=== PATIENT | female | born 1955 | race Caucasian/White ===

== ENCOUNTER 2021-03-11 10:27 | Outpatient (CLI) | payer BC ==
[2021-03-11 23:42] LABS: SARS-CoV-2 PCR by NAA Not Detected (NotDetected)
== END 2021-03-11 10:28 | disposition home or self-care (01) ==
LOC: CSHLAB 10:27
PROVIDERS: ATTEND Internal Medicine
DX: Z01.812 Encounter for preprocedural laboratory examination (principal); Z20.822 Contact with and (suspected) exposure to COVID-19
CPT/HCPCS: U0003; U0005

== ENCOUNTER 2021-03-15 07:15 | Outpatient (CLI) | payer BC | END 2021-03-15 07:16 | disposition home or self-care (01) | LOC: CSHRAD 07:15 | PROVIDERS: ATTEND Internal Medicine | DX: R13.10 Dysphagia, unspecified (principal); K21.9 Gastro-esophageal reflux disease without esophagitis; K22.2 Esophageal obstruction | CPT/HCPCS: 74220 ==

== ENCOUNTER 2022-04-28 08:46 | Outpatient (CLI) | payer MEDICARE | END 2022-04-28 08:47 | disposition home or self-care (01) | LOC: CSHCT 08:46 | PROVIDERS: ATTEND Internal Medicine Hematology & Oncology | DX: C15.5 Malignant neoplasm of lower third of esophagus (principal); Z98.890 Other specified postprocedural states; R91.8 Other nonspecific abnormal finding of lung field | CPT/HCPCS: 71260; 74177 ==

== ENCOUNTER 2022-05-04 09:30 | Inpatient (IN) | payer MEDICARE ==
[2022-05-04] MEDS ORDERED: Morphine 4 MG/ML VIAL ONE (10:29)
[2022-05-04] MEDS ORDERED: Ondansetron PF 4 MG/2 ML Vial ONE (10:30)
[2022-05-04 10:44] LABS: #Basophils 0.1 10x3/uL (0.0-0.2); #Monocytes 0.6 10x3/uL (0.0-1.1); #Neutrophils 13.2 10x3/uL (1.5-8.4); %Basophils 0.3 % (0.0-2.0); %Eosinophils 0.2 % (0.0-6.0); %Lymphocytes 4.8 % (18.0-47.0); %Neutrophils 90.1 % (40.0-75.0); Hemoglobin 12.6 g/dL (12.0-15.5); Mean Corpuscular HGB CONC 33.8 g/dL (32.0-36.0); Mean Corpuscular Hemoglobin 31.5 pg (27.0-33.0); Mean Corpuscular Volume 93.3 fl (81.6-98.3); Mean Platelet Volume 9.3 fl (7.4-10.4); Platelet Count 321 10x3/uL (150-450); RBC Distribution Width 15.8 % (11.5-14.5); White Blood Cell (WBC) Count 14.7 10x3/uL (3.5-10.5)
[2022-05-04 10:55] LABS: ALT (SGPT) 13 U/L (8-55); AST (SGOT) 12 U/L (5-34); Albumin 3.6 g/dL (3.4-4.8); Alkaline Phosphatase 88 U/L (40-110); Anion Gap 18 mmol/L (10-20); BUN (Urea Nitrogen) 9 mg/dL (9.8-20.1); Bilirubin, Total 0.9 mg/dL (0.2-1.2); Calc. Creatinine Clearance 0 mL/min (70-130); Calcium 9.2 mg/dL (7.8-10.44); Carbon Dioxide 25 mmol/L (23-31); Chloride 95 mmol/L (98-107); Estimated GFR 100; Glucose 112 mg/dL (80-115); Potassium 3.3 mmol/L (3.5-5.1); Protein, Total 6.6 g/dL (5.8-8.1); Sodium 135 mmol/L (136-145)
[2022-05-04 11:08] LABS: Lipase Less than 4 U/L (8-78)
[2022-05-04 11:19] LABS: Bilirubin Neg (Negative); Blood, Urine 25 (Negative); Clarity Slightly Cloudy (Clear); Glucose, Urine (Dipstick) Normal (Negative); Ketone, Urine 150 mg/dL (Negative); Leukocyte 100 (Negative); Nitrite Positive (Negative); Protein, Urine (Dipstick) 15 mg/dl (Neg-Trace); Specific Gravity, Urine 1.015 (1.005-1.030); Urobilinogen Normal mg/dL (Less than 2)
[2022-05-04 11:45] LABS: Bacteria/HPF 4+ HPF (None Seen); RBC/HPF 0-3 HPF (0-3); Squamous Epithelial 0-3 HPF (0-3)
[2022-05-04] MEDS ORDERED: Fentanyl 100 MCG/2 ML VIAL ONE (12:39)
[2022-05-04] MEDS ORDERED: cefTRIAXone\\ROCEPHIN 2 GM VIAL ONE (12:50)
[2022-05-04] MEDS ORDERED: HYDROcodone/Acetaminophen 5/325 mg Tablet PO PRN (13:12)
[2022-05-04] MEDS ORDERED: Acetaminophen 325 MG TAB PO PRN (13:12)
[2022-05-04] MEDS ORDERED: Enoxaparin Sodium 40 MG/0.4 ML SYRINGE SC SCH (13:15)
[2022-05-04] MEDS ORDERED: cefTRIAXone\\ROCEPHIN 1 GM in Sodium Chloride 0.9% 100 ML IVPB SCH (13:15)
[2022-05-04] MEDS ORDERED: Azithromycin 500 MG in Sodium Chloride 0.9% 250 ML 250 ML IVPB SCH (13:15)
[2022-05-04] MEDS ORDERED: Azithromycin 500 MG VIAL ONE (14:13)
[2022-05-04] MEDS ORDERED: Iopamidol 300 61% 100 ML VIAL FS ONE (14:39)
[2022-05-04] MEDS ORDERED: Pantoprazole 40 MG VIAL ONE (15:28)
[2022-05-04] MEDS ORDERED: GoLYTELY 4,000 ml Bottle PO SCH (16:00)
[2022-05-04] MEDS ORDERED: Piperacillin/Tazobactam 3.375 GM in Sodium Chloride 0.9% 100 ML IVPB SCH (16:00)
[2022-05-04] MEDS ORDERED: Piperacillin/Tazobactam 3.375 GM VIAL ONE (16:19)
[2022-05-04] MEDS ORDERED: Enoxaparin Sodium 40 MG/0.4 ML SYRINGE ONE (16:19)
[2022-05-04] MEDS: Sodium Chloride 0.9% 1,000 ML IV SCH (16:28)
[2022-05-04 16:51] LABS: ALT (SGPT) 11 U/L (8-55); AST (SGOT) 10 U/L (5-34); Albumin 2.8 g/dL (3.4-4.8); Alkaline Phosphatase 72 U/L (40-110); Bilirubin, Direct 0.2 mg/dL (0.1-0.3); Bilirubin, Total 0.4 mg/dL (0.2-1.2); Protein, Total 5.6 g/dL (5.8-8.1)
[2022-05-04] MEDS: Piperacillin/Tazobactam 3.375 GM in Sodium Chloride 0.9% 100 ML IVPB SCH (20:42)
[2022-05-04] MEDS: Carvedilol 25 MG TAB PO SCH (20:42)
[2022-05-04] MEDS: clonazePAM 0.5 MG TAB PO SCH (20:43)
[2022-05-04] MEDS: Ondansetron ODT 8 MG TAB PO PRN (20:46)
[2022-05-04] MEDS: HYDROcodone/Acetaminophen 10/325 mg Tablet PO PRN (21:45)
[2022-05-05] MEDS: clonazePAM 0.5 MG TAB PO SCH ×5 (00:24→21:00)
[2022-05-05 05:53] LABS: Anion Gap 17 mmol/L (10-20); BUN (Urea Nitrogen) 10 mg/dL (9.8-20.1); Calc. Creatinine Clearance 93 mL/min (70-130); Calcium 8.4 mg/dL (7.8-10.44); Carbon Dioxide 20 mmol/L (23-31); Chloride 106 mmol/L (98-107); Estimated GFR 103; Glucose 77 mg/dL (80-115); Sodium 140 mmol/L (136-145)
[2022-05-05] MEDS: Piperacillin/Tazobactam 3.375 GM in Sodium Chloride 0.9% 100 ML IVPB SCH ×3 (06:04→21:00)
[2022-05-05] MEDS: HYDROcodone/Acetaminophen 10/325 mg Tablet PO PRN ×5 (06:05→22:52)
[2022-05-05] MEDS: Ondansetron ODT 8 MG TAB PO PRN (06:28)
[2022-05-05 06:41] LABS: #Eosinphils 0.1 10x3/uL (0.0-0.5); #Monocytes 0.4 10x3/uL (0.0-1.1); #Neutrophils 7.6 10x3/uL (1.5-8.4); %Basophils 0.3 % (0.0-2.0); %Eosinophils 0.8 % (0.0-6.0); %Lymphocytes 5.5 % (18.0-47.0); %Neutrophils 87.9 % (40.0-75.0); Hemoglobin 9.6 g/dL (12.0-15.5); Mean Corpuscular Hemoglobin 31.3 pg (27.0-33.0); Mean Corpuscular Volume 94.8 fl (81.6-98.3); Mean Platelet Volume 9.4 fl (7.4-10.4); Platelet Count 260 10x3/uL (150-450); RBC Distribution Width 16.1 % (11.5-14.5); Red Blood Cell (RBC) Count 3.07 10x6/uL (3.90-5.03); White Blood Cell (WBC) Count 8.7 10x3/uL (3.5-10.5)
[2022-05-05 07:01] VITALS: BMI 23.9
[2022-05-05] MEDS ORDERED: Potassium Chloride 20 MEQ TAB PO SCH (07:45)
[2022-05-05 09:08] LABS: Magnesium 1.8 mg/dL (1.6-2.6)
[2022-05-05] MEDS: Enoxaparin Sodium 40 MG/0.4 ML SYRINGE SC SCH (09:10)
[2022-05-05] MEDS: Losartan Potassium 50 MG TAB PO SCH (09:10)
[2022-05-05] MEDS: Carvedilol 25 MG TAB PO SCH ×2 (09:11→21:00)
[2022-05-05] MEDS: predniSONE 10 MG TAB PO SCH (09:11)
[2022-05-05] MEDS: Amlodipine 5 MG TAB PO SCH (09:11)
[2022-05-05] MEDS: Sodium Chloride 0.9% 1,000 ML IV SCH ×2 (11:29→19:46)
[2022-05-06] MEDS: HYDROcodone/Acetaminophen 10/325 mg Tablet PO PRN ×3 (02:02→08:59)
[2022-05-06] MEDS: Piperacillin/Tazobactam 3.375 GM in Sodium Chloride 0.9% 100 ML IVPB SCH (04:40)
[2022-05-06 06:51] LABS: #Eosinphils 0.2 10x3/uL (0.0-0.5); #Monocytes 0.6 10x3/uL (0.0-1.1); #Neutrophils 7.6 10x3/uL (1.5-8.4); %Basophils 0.3 % (0.0-2.0); %Eosinophils 1.7 % (0.0-6.0); %Lymphocytes 6.3 % (18.0-47.0); %Monocytes 6.2 % (0.0-10.0); %Neutrophils 84.7 % (40.0-75.0); Hemoglobin 10.3 g/dL (12.0-15.5); Mean Corpuscular HGB CONC 32.2 g/dL (32.0-36.0); Mean Corpuscular Hemoglobin 30.7 pg (27.0-33.0); Mean Corpuscular Volume 95.5 fl (81.6-98.3); Mean Platelet Volume 9.7 fl (7.4-10.4); Platelet Count 242 10x3/uL (150-450); RBC Distribution Width 16.1 % (11.5-14.5); Red Blood Cell (RBC) Count 3.35 10x6/uL (3.90-5.03); White Blood Cell (WBC) Count 8.9 10x3/uL (3.5-10.5)
[2022-05-06 06:53] LABS: Anion Gap 13 mmol/L (10-20); BUN (Urea Nitrogen) 11 mg/dL (9.8-20.1); Calc. Creatinine Clearance 94 mL/min (70-130); Calcium 8.8 mg/dL (7.8-10.44); Carbon Dioxide 24 mmol/L (23-31); Chloride 107 mmol/L (98-107); Estimated GFR 101; Glucose 95 mg/dL (80-115); Potassium 3.6 mmol/L (3.5-5.1); Sodium 140 mmol/L (136-145)
[2022-05-06 08:15] VITALS: BP 135/63; TEMP 98.3
[2022-05-06] MEDS: Amlodipine 5 MG TAB PO SCH (08:59)
[2022-05-06] MEDS: clonazePAM 0.5 MG TAB PO SCH (09:00)
[2022-05-06] MEDS ORDERED: Polyethylene Glycol 3350 17 GM Packet PO SCH (09:00)
[2022-05-06] MEDS: Losartan Potassium 50 MG TAB PO SCH (09:00)
[2022-05-06] MEDS: predniSONE 10 MG TAB PO SCH (09:01)
[2022-05-06] MEDS: Enoxaparin Sodium 40 MG/0.4 ML SYRINGE SC SCH (09:01)
[2022-05-06] MEDS: Carvedilol 25 MG TAB PO SCH (09:01)
== END 2022-05-06 11:30 | disposition home or self-care (01) | DRG 871 ==
LOC: CSHERS 09:30 → CSHERHOLD 15:20 → CSHTELE 19:12
PROVIDERS: ADMIT Family Medicine; ATTEND Internal Medicine
DX: A41.9 Sepsis, unspecified organism (principal); J18.9 Pneumonia, unspecified organism; N39.0 Urinary tract infection, site not specified; C15.9 Malignant neoplasm of esophagus, unspecified; M81.0 Age-related osteoporosis without current pathological fracture; I10 Essential (primary) hypertension; E87.6 Hypokalemia; E86.0 Dehydration; D64.9 Anemia, unspecified; K59.03 Drug induced constipation; T40.2X5A Adverse effect of other opioids, initial encounter; Z88.5 Allergy status to narcotic agent; Z88.8 Allergy status to other drugs, medicaments and biological substances; Z79.899 Other long term (current) drug therapy
CPT/HCPCS: 36415; 74177; 74181; 80048; 80053; 81003; 81015; 82247; 83605; 83690; 83735; 83880; 84484; 85025; 87040; 87077; 87086; 87149; 87186; 93005; 94760; 96361; 96365; 96366; 96367; 96375; 96376; C9113; J0456; J0696; J1650; J2270; J2405; J2543; J3010; J3490; J7050; J7512; Q0162; Q9967

== ENCOUNTER 2022-05-17 15:18 | Inpatient (IN) | payer MEDICARE ==
[~2022-05-17 15:18] MED LIST: Iopamidol 370 76% 100 ML VIAL ONE
[2022-05-17] MEDS ORDERED: Aspirin Chewable 81 MG TAB ONE (15:54)
[2022-05-17] MEDS ORDERED: Ketorolac Tromethamine 30 MG/ML VIAL ONE (16:04)
[2022-05-17] MEDS ORDERED: cefTRIAXone\\ROCEPHIN 1 GM VIAL ONE (16:05)
[2022-05-17 16:24] LABS: ALT (SGPT) 18 U/L (8-55); AST (SGOT) 24 U/L (5-34); Albumin 3.2 g/dL (3.4-4.8); Alkaline Phosphatase 86 U/L (40-110); Anion Gap 19 mmol/L (10-20); BUN (Urea Nitrogen) 9 mg/dL (9.8-20.1); Bilirubin, Total 0.7 mg/dL (0.2-1.2); Calc. Creatinine Clearance 0 mL/min (70-130); Calcium 8.7 mg/dL (7.8-10.44); Carbon Dioxide 22 mmol/L (23-31); Chloride 99 mmol/L (98-107); Estimated GFR 97; Globulin 2.8 g/dL (2.4-3.5); Glucose 203 mg/dL (80-115); Lipase 6 U/L (8-78); Magnesium 1.5 mg/dL (1.6-2.6); Potassium 4.3 mmol/L (3.5-5.1); Sodium 136 mmol/L (136-145)
[2022-05-17] MEDS ORDERED: Vancomycin 1 GM VIAL ONE (16:34)
[2022-05-17 16:38] LABS: MDiff Complete? YES
[2022-05-17 16:51] LABS: CKMB 2.6 ng/mL (0-6.6)
[2022-05-17] MEDS ORDERED: Piperacillin/Tazobactam 4.5 GM VIAL ONE (17:02)
[2022-05-17] MEDS ORDERED: Magnesium 2 GM/50 ML BAG (IN WATER) ONE (17:02)
[2022-05-17 17:16] LABS: Band 10 % (5-11)
[2022-05-17 17:25] LABS: Platelet Count 320 10x3/uL (150-450)
[2022-05-17 17:26] LABS: Hemoglobin 10.3 g/dL (12.0-15.5); Lymphocytes 8 % (21-51); Mean Corpuscular HGB CONC 32.2 g/dL (32.0-36.0); Mean Corpuscular Hemoglobin 30.5 pg (27.0-33.0); Mean Corpuscular Volume 94.7 fl (81.6-98.3); Mean Platelet Volume 9.9 fl (7.4-10.4); Monocytes 1 % (0-10); Neutrophil 80 % (42-75); RBC Distribution Width 16.5 % (11.5-14.5); Reactive Lymphocytes 1 % (0-10); Red Blood Cell (RBC) Count 3.38 10x6/uL (3.90-5.03)
[2022-05-17 17:27] LABS: Toxic Granulation SLIGHT; Vacuoles SLIGHT
[2022-05-17] MEDS ORDERED: NOREPINEPHRINE 8 MG/250 ML-D5W 250 ML ONE (17:28)
[2022-05-17 17:33] LABS: Bilirubin Neg (Negative); Blood, Urine 10 (Negative); Clarity Clear (Clear); Glucose, Urine (Dipstick) Normal (Negative); Ketone, Urine Negative (Negative); Leukocyte Negative (Negative); Nitrite Negative (Negative); Protein, Urine (Dipstick) 15 mg/dl (Neg-Trace); Urobilinogen Normal mg/dL (Less than 2)
[2022-05-17] MEDS ORDERED: Fentanyl 100 MCG/2 ML VIAL ONE (17:40)
[2022-05-17 17:49] LABS: Bacteria/HPF Rare-Few HPF (None Seen); Mucous/LPF 1+ LPF (<2+); RBC/HPF 0-3 HPF (0-3); Squamous Epithelial 0-3 HPF (0-3); WBC/HPF 0-3 HPF (0-3)
[2022-05-17] MEDS ORDERED: Ondansetron PF 4 MG/2 ML Vial ONE (17:55)
[2022-05-17] MEDS ORDERED: Vasopressin 20 UNIT, Admixture Fee 1 EACH in Sodium Chloride 0.9% 50 ML IV SCH (18:30)
[2022-05-17 18:49] LABS: SARS-CoV-2 NAA Rapid Test Not Detected (NotDetected)
[2022-05-17] MEDS ORDERED: Lorazepam 2 MG/ML VIAL ONE (18:52)
[2022-05-17] MEDS ORDERED: Electrolyte Replacement Protocol 1 EACH IVPB SCH (19:06)
[2022-05-17] MEDS ORDERED: Piperacillin/Tazobactam 3.375 GM in Sodium Chloride 0.9% 100 ML IVPB SCH (19:15)
[2022-05-17] MEDS ORDERED: Ondansetron ODT 8 MG TAB PO PRN (19:16)
[2022-05-17] MEDS ORDERED: Naloxone HCl 0.4 mg/ml Vial IV PRN (19:31)
[2022-05-17] MEDS ORDERED: Prochlorperazine Maleate 5 MG TAB PO PRN (19:32)
[2022-05-17] MEDS: Sodium Chloride 0.9% 1,000 ML IV SCH (21:09)
[2022-05-17] MEDS: clonazePAM 0.5 MG TAB PO SCH ×3 (21:17→23:41)
[2022-05-17 21:40] LABS: Hemoglobin 10.2 g/dL (12.0-15.5); Mean Corpuscular HGB CONC 30.3 g/dL (32.0-36.0); Mean Corpuscular Volume 99.1 fl (81.6-98.3); Mean Platelet Volume 9.9 fl (7.4-10.4); Platelet Count 256 10x3/uL (150-450); RBC Distribution Width 16.8 % (11.5-14.5); White Blood Cell (WBC) Count 15.3 10x3/uL (3.5-10.5)
[2022-05-17 21:43] LABS: MDiff Complete? YES
[2022-05-17 21:47] LABS: Lactic Acid 7.1 mmol/L (0.5-2.2)
[2022-05-17 21:48] LABS: ALT (SGPT) 113 U/L (8-55); AST (SGOT) 266 U/L (5-34); Albumin 2.5 g/dL (3.4-4.8); Alkaline Phosphatase 223 U/L (40-110); Anion Gap 18 mmol/L (10-20); BUN (Urea Nitrogen) 9 mg/dL (9.8-20.1); Bilirubin, Total 1.1 mg/dL (0.2-1.2); Calc. Creatinine Clearance 59 mL/min (70-130); Calcium 7.5 mg/dL (7.8-10.44); Carbon Dioxide 16 mmol/L (23-31); Chloride 108 mmol/L (98-107); Estimated GFR 98; Globulin 2.6 g/dL (2.4-3.5); Glucose 204 mg/dL (80-115); Potassium 4.5 mmol/L (3.5-5.1); Protein, Total 5.1 g/dL (5.8-8.1); Sodium 137 mmol/L (136-145)
[2022-05-17 22:50] LABS: Band 17 % (5-11); Lymphocytes 4 % (21-51); Monocytes 4 % (0-10); Neutrophil 75 % (42-75)
[2022-05-17 22:52] LABS: Platelet Morphology Comment Appears Adequate
[2022-05-17] MEDS: Piperacillin/Tazobactam 3.375 GM in Sodium Chloride 0.9% 100 ML IVPB SCH (23:25)
[2022-05-18] MEDS: methylPREDNISolone Sod Succ 40 MG VIAL IVP SCH ×4 (02:24→17:15)
[2022-05-18 04:37] LABS: #Monocytes 0.6 10x3/uL (0.0-1.1); #Neutrophils 5.4 10x3/uL (1.5-8.4); %Basophils 0.3 % (0.0-2.0); %Eosinophils 0.1 % (0.0-6.0); %Lymphocytes 9.5 % (18.0-47.0); %Monocytes 9.4 % (0.0-10.0); %Neutrophils 79.8 % (40.0-75.0); Hemoglobin 8.8 g/dL (12.0-15.5); Mean Corpuscular HGB CONC 31.7 g/dL (32.0-36.0); Mean Corpuscular Volume 95.1 fl (81.6-98.3); Mean Platelet Volume 10.1 fl (7.4-10.4); Platelet Count 200 10x3/uL (150-450); RBC Distribution Width 16.7 % (11.5-14.5); Red Blood Cell (RBC) Count 2.93 10x6/uL (3.90-5.03); White Blood Cell (WBC) Count 6.7 10x3/uL (3.5-10.5)
[2022-05-18 04:39] LABS: ALT (SGPT) 89 U/L (8-55); AST (SGOT) 148 U/L (5-34); Albumin 2.4 g/dL (3.4-4.8); Alkaline Phosphatase 176 U/L (40-110); Anion Gap 13 mmol/L (10-20); BUN (Urea Nitrogen) 9 mg/dL (9.8-20.1); Bilirubin, Total 0.4 mg/dL (0.2-1.2); Calc. Creatinine Clearance 63 mL/min (70-130); Calcium 7.5 mg/dL (7.8-10.44); Carbon Dioxide 18 mmol/L (23-31); Chloride 109 mmol/L (98-107); Estimated GFR 100; Globulin 2.3 g/dL (2.4-3.5); Glucose 170 mg/dL (80-115); Magnesium 2.1 mg/dL (1.6-2.6); Potassium 3.9 mmol/L (3.5-5.1); Protein, Total 4.7 g/dL (5.8-8.1); Sodium 136 mmol/L (136-145)
[2022-05-18 05:20] LABS: Band 15 % (5-11); Lymphocytes 9 % (21-51); Monocytes 8 % (0-10)
[2022-05-18 05:21] LABS: Neutrophil 67 % (42-75)
[2022-05-18 05:22] LABS: Hypochromia SLIGHT = 6-15 cells (100X) (0-5/hpf); Platelet Morphology Comment Appears Adequate
[2022-05-18] MEDS: Vancomycin HCl 750 MG in Sodium Chloride 0.9% 250 ML 250 ML IVPB SCH ×2 (06:00→17:16)
[2022-05-18] MEDS: Ondansetron PF 4 MG/2 ML Vial IVP PRN (06:07)
[2022-05-18] MEDS: Sodium Chloride 0.9% 1,000 ML IV SCH ×3 (07:28→17:16)
[2022-05-18] MEDS: Piperacillin/Tazobactam 3.375 GM in Sodium Chloride 0.9% 100 ML IVPB SCH ×2 (08:18→14:14)
[2022-05-18] MEDS: HYDROcodone/Acetaminophen 10/325 mg Tablet PO PRN ×4 (08:22→22:35)
[2022-05-18] MEDS: clonazePAM 0.5 MG TAB PO SCH ×2 (08:23→19:59)
[2022-05-18] MEDS ORDERED: predniSONE 10 MG TAB PO SCH (09:00)
[2022-05-18 11:14] LABS: Lactic Acid 3.2 mmol/L (0.5-2.2)
[2022-05-18] MEDS ORDERED: Dexmedetomidine In 0.9 % NaCl 100 ML IVPB SCH (11:45)
[2022-05-18 16:58] LABS: Troponin I 1.952 ng/mL (< 0.028)
[2022-05-19] MEDS ORDERED: Sodium Chloride 0.9% 100 ML ONE (00:37)
[2022-05-19] MEDS: methylPREDNISolone Sod Succ 40 MG VIAL IVP SCH ×4 (00:38→20:04)
[2022-05-19] MEDS: Piperacillin/Tazobactam 3.375 GM in Sodium Chloride 0.9% 100 ML IVPB SCH ×2 (00:38→08:14)
[2022-05-19] MEDS: Sodium Chloride 0.9% 1,000 ML IV SCH ×2 (02:57→12:57)
[2022-05-19] MEDS: HYDROcodone/Acetaminophen 10/325 mg Tablet PO PRN ×4 (03:40→17:29)
[2022-05-19 05:14] LABS: #Monocytes 0.3 10x3/uL (0.0-1.1); #Neutrophils 8.7 10x3/uL (1.5-8.4); %Basophils 0.1 % (0.0-2.0); %Lymphocytes 5.8 % (18.0-47.0); %Monocytes 3.1 % (0.0-10.0); %Neutrophils 90.2 % (40.0-75.0); Hemoglobin 8.6 g/dL (12.0-15.5); Mean Corpuscular HGB CONC 30.9 g/dL (32.0-36.0); Mean Corpuscular Hemoglobin 29.7 pg (27.0-33.0); Mean Corpuscular Volume 95.9 fl (81.6-98.3); Mean Platelet Volume 10.5 fl (7.4-10.4); Platelet Count 220 10x3/uL (150-450); RBC Distribution Width 17.2 % (11.5-14.5); White Blood Cell (WBC) Count 9.6 10x3/uL (3.5-10.5)
[2022-05-19 05:29] LABS: ALT (SGPT) 65 U/L (8-55); AST (SGOT) 71 U/L (5-34); Albumin 2.5 g/dL (3.4-4.8); Alkaline Phosphatase 155 U/L (40-110); Anion Gap 15 mmol/L (10-20); BUN (Urea Nitrogen) 9 mg/dL (9.8-20.1); Bilirubin, Total 0.3 mg/dL (0.2-1.2); Calc. Creatinine Clearance 68 mL/min (70-130); Calcium 7.9 mg/dL (7.8-10.44); Carbon Dioxide 16 mmol/L (23-31); Chloride 114 mmol/L (98-107); Estimated GFR 101; Globulin 2.5 g/dL (2.4-3.5); Glucose 147 mg/dL (80-115); Sodium 141 mmol/L (136-145)
[2022-05-19 05:44] LABS: Vancomycin, Trough 9.9 ug/mL
[2022-05-19] MEDS ORDERED: Vancomycin HCl 1 GM in Sodium Chloride 0.9% 250 ML 250 ML IVPB SCH (06:00)
[2022-05-19] MEDS: clonazePAM 0.5 MG TAB PO SCH ×2 (08:15→20:04)
[2022-05-19] MEDS: Aspirin 81 mg Enteric Coated Tablet PO SCH (08:15)
[2022-05-19] MEDS: Carvedilol 3.125 MG TAB PO SCH ×2 (08:15→16:07)
[2022-05-19] MEDS: cefTRIAXone\\ROCEPHIN 2 GM in Sodium Chloride 0.9% 100 ML IVPB SCH (12:50)
[2022-05-19] MEDS: Carvedilol 6.25 MG TAB PO SCH (16:45)
[2022-05-20] MEDS: HYDROcodone/Acetaminophen 10/325 mg Tablet PO PRN ×4 (04:10→19:50)
[2022-05-20 04:52] LABS: Hemoglobin 8.8 g/dL (12.0-15.5); Mean Corpuscular HGB CONC 31.3 g/dL (32.0-36.0); Mean Corpuscular Hemoglobin 30.3 pg (27.0-33.0); Mean Corpuscular Volume 96.9 fl (81.6-98.3); Mean Platelet Volume 11.2 fl (7.4-10.4); Platelet Count 270 10x3/uL (150-450); RBC Distribution Width 17.2 % (11.5-14.5); White Blood Cell (WBC) Count 12.4 10x3/uL (3.5-10.5)
[2022-05-20 05:07] LABS: ALT (SGPT) 54 U/L (8-55); AST (SGOT) 37 U/L (5-34); Albumin 2.7 g/dL (3.4-4.8); Alkaline Phosphatase 140 U/L (40-110); Anion Gap 15 mmol/L (10-20); BUN (Urea Nitrogen) 15 mg/dL (9.8-20.1); Bilirubin, Total 0.2 mg/dL (0.2-1.2); Calc. Creatinine Clearance 65 mL/min (70-130); Calcium 8.3 mg/dL (7.8-10.44); Carbon Dioxide 16 mmol/L (23-31); Chloride 116 mmol/L (98-107); Estimated GFR 97; Globulin 2.8 g/dL (2.4-3.5); Glucose 150 mg/dL (80-115); Potassium 4.1 mmol/L (3.5-5.1); Protein, Total 5.5 g/dL (5.8-8.1); Sodium 143 mmol/L (136-145)
[2022-05-20 06:12] LABS: MDiff Complete? YES; Platelet Morphology Comment Appears Adequate
[2022-05-20 06:14] LABS: Band 4 % (5-11); Lymphocytes 4 % (21-51); Monocytes 3 % (0-10); Neutrophil 89 % (42-75)
[2022-05-20 06:15] LABS: Anisocytosis SLIGHT = 6-15 cells (100X) (0-5/hpf); Hypochromia SLIGHT = 6-15 cells (100X) (0-5/hpf)
[2022-05-20] MEDS: Sodium Chloride 0.9% 1,000 ML IV SCH ×2 (07:57→18:15)
[2022-05-20] MEDS: Carvedilol 6.25 MG TAB PO SCH (07:57)
[2022-05-20] MEDS: methylPREDNISolone Sod Succ 40 MG VIAL IVP SCH ×2 (07:58→19:51)
[2022-05-20] MEDS: Aspirin 81 mg Enteric Coated Tablet PO SCH (07:58)
[2022-05-20] MEDS: clonazePAM 0.5 MG TAB PO SCH ×2 (07:58→19:51)
[2022-05-20] MEDS: cefTRIAXone\\ROCEPHIN 2 GM in Sodium Chloride 0.9% 100 ML IVPB SCH (12:53)
[2022-05-20] MEDS ORDERED: EPINEPHrine 1 MG/ML AMP ONE (13:48)
[2022-05-20] MEDS ORDERED: Bupivacaine 0.25% HCL 30 ML VIAL ONE (13:48)
[2022-05-20] MEDS ORDERED: Fentanyl 100 MCG/2 ML VIAL ONE (15:59)
[2022-05-20] MEDS ORDERED: PROPOFOL 20 ML ONE (15:59)
[2022-05-20] MEDS ORDERED: ePHEDrine Sulfate 50 MG/10 ML VIAL ONE (16:00)
[2022-05-20] MEDS ORDERED: Ketamine 50 MG/ML (10ML VIAL) ONE (16:01)
[2022-05-20] MEDS: Carvedilol 12.5 MG TAB PO SCH (19:08)
[2022-05-21] MEDS: HYDROcodone/Acetaminophen 10/325 mg Tablet PO PRN ×4 (01:56→21:29)
[2022-05-21] MEDS: Sodium Chloride 0.9% 1,000 ML IV SCH ×2 (03:46→12:16)
[2022-05-21 04:54] LABS: ALT (SGPT) 38 U/L (8-55); AST (SGOT) 20 U/L (5-34); Albumin 2.6 g/dL (3.4-4.8); Alkaline Phosphatase 121 U/L (40-110); Anion Gap 13 mmol/L (10-20); BUN (Urea Nitrogen) 20 mg/dL (9.8-20.1); Bilirubin, Total 0.2 mg/dL (0.2-1.2); Calc. Creatinine Clearance 71 mL/min (70-130); Calcium 8.1 mg/dL (7.8-10.44); Carbon Dioxide 17 mmol/L (23-31); Chloride 116 mmol/L (98-107); Estimated GFR 99; Globulin 2.6 g/dL (2.4-3.5); Glucose 133 mg/dL (80-115); Potassium 4.3 mmol/L (3.5-5.1); Protein, Total 5.2 g/dL (5.8-8.1); Sodium 142 mmol/L (136-145)
[2022-05-21 05:28] LABS: #Monocytes 0.3 10x3/uL (0.0-1.1); #Neutrophils 7.8 10x3/uL (1.5-8.4); %Basophils 0.2 % (0.0-2.0); %Lymphocytes 7.2 % (18.0-47.0); %Monocytes 3.6 % (0.0-10.0); %Neutrophils 84.6 % (40.0-75.0); Hemoglobin 8.5 g/dL (12.0-15.5); Mean Corpuscular HGB CONC 30.9 g/dL (32.0-36.0); Mean Corpuscular Volume 97.2 fl (81.6-98.3); Mean Platelet Volume 11.2 fl (7.4-10.4); Platelet Count 237 10x3/uL (150-450); RBC Distribution Width 17.3 % (11.5-14.5); Red Blood Cell (RBC) Count 2.83 10x6/uL (3.90-5.03); White Blood Cell (WBC) Count 9.3 10x3/uL (3.5-10.5)
[2022-05-21] MEDS: clonazePAM 0.5 MG TAB PO SCH ×2 (07:56→20:11)
[2022-05-21] MEDS: Aspirin 81 mg Enteric Coated Tablet PO SCH (07:57)
[2022-05-21] MEDS: Carvedilol 12.5 MG TAB PO SCH ×2 (07:57→16:54)
[2022-05-21] MEDS: methylPREDNISolone Sod Succ 40 MG VIAL IVP SCH ×2 (08:39→20:11)
[2022-05-21] MEDS: cefTRIAXone\\ROCEPHIN 2 GM in Sodium Chloride 0.9% 100 ML IVPB SCH (11:04)
[2022-05-21] MEDS: Acetaminophen 325 MG TAB PO PRN (20:47)
[2022-05-21] MEDS: Ondansetron PF 4 MG/2 ML Vial IVP PRN (21:34)
[2022-05-21] MEDS ORDERED: Furosemide 40 MG/4 ML VIAL SLOW IVP SCH (22:15)
[2022-05-22] MEDS: HYDROcodone/Acetaminophen 10/325 mg Tablet PO PRN ×4 (01:31→20:05)
[2022-05-22 04:28] LABS: Hemoglobin 9.1 g/dL (12.0-15.5); Mean Corpuscular HGB CONC 31.5 g/dL (32.0-36.0); Mean Corpuscular Hemoglobin 29.8 pg (27.0-33.0); Mean Corpuscular Volume 94.8 fl (81.6-98.3); Mean Platelet Volume 11.4 fl (7.4-10.4); Platelet Count 312 10x3/uL (150-450); RBC Distribution Width 17.4 % (11.5-14.5); Red Blood Cell (RBC) Count 3.05 10x6/uL (3.90-5.03); White Blood Cell (WBC) Count 12.7 10x3/uL (3.5-10.5)
[2022-05-22 04:37] LABS: ALT (SGPT) 33 U/L (8-55); AST (SGOT) 18 U/L (5-34); Albumin 2.8 g/dL (3.4-4.8); Alkaline Phosphatase 119 U/L (40-110); Anion Gap 16 mmol/L (10-20); BUN (Urea Nitrogen) 21 mg/dL (9.8-20.1); Bilirubin, Total 0.2 mg/dL (0.2-1.2); Calc. Creatinine Clearance 67 mL/min (70-130); Carbon Dioxide 17 mmol/L (23-31); Chloride 113 mmol/L (98-107); Estimated GFR 96; Globulin 2.8 g/dL (2.4-3.5); Glucose 156 mg/dL (80-115); Potassium 3.8 mmol/L (3.5-5.1); Protein, Total 5.6 g/dL (5.8-8.1); Sodium 142 mmol/L (136-145)
[2022-05-22 04:39] LABS: MDiff Complete? YES
[2022-05-22 06:32] LABS: Band 1 % (5-11); Lymphocytes 3 % (21-51); Monocytes 13 % (0-10); Neutrophil 83 % (42-75)
[2022-05-22 06:35] LABS: Anisocytosis SLIGHT = 6-15 cells (100X) (0-5/hpf); Hypochromia SLIGHT = 6-15 cells (100X) (0-5/hpf); Microcytosis SLIGHT = 6-15 cells (100X) (0-5/hpf); Platelet Morphology Comment Appears Adequate; Polychromasia SLIGHT = 2-3 cells (100X) (0-2/hpf); Schistocytes SLIGHT = 2-5 cells (100X) (0-1/hpf); Stomatocytes SLIGHT = 2-5 cells (100X) (0-1/hpf)
[2022-05-22] MEDS: clonazePAM 0.5 MG TAB PO SCH ×2 (08:01→20:05)
[2022-05-22] MEDS: Carvedilol 25 MG TAB PO SCH ×2 (08:02→16:59)
[2022-05-22] MEDS: Aspirin 81 mg Enteric Coated Tablet PO SCH (08:02)
[2022-05-22] MEDS: methylPREDNISolone Sod Succ 40 MG VIAL IVP SCH (09:54)
[2022-05-22] MEDS: cefTRIAXone\\ROCEPHIN 2 GM in Sodium Chloride 0.9% 100 ML IVPB SCH (11:15)
[2022-05-22] MEDS ORDERED: Lidocaine 1% PF 5 ML VIAL ONE (12:11)
[2022-05-22] MEDS ORDERED: Sodium Bicarbonate 2.5 MEQ/5 ML VIAL ONE (12:12)
[2022-05-22] MEDS ORDERED: Furosemide 40 MG/4 ML VIAL SLOW IVP SCH (13:00)
[2022-05-23 04:59] LABS: ALT (SGPT) 31 U/L (8-55); AST (SGOT) 23 U/L (5-34); Albumin 2.7 g/dL (3.4-4.8); Alkaline Phosphatase 100 U/L (40-110); Anion Gap 14 mmol/L (10-20); BUN (Urea Nitrogen) 20 mg/dL (9.8-20.1); Bilirubin, Total 0.3 mg/dL (0.2-1.2); Calc. Creatinine Clearance 76 mL/min (70-130); Calcium 8.1 mg/dL (7.8-10.44); Carbon Dioxide 22 mmol/L (23-31); Chloride 110 mmol/L (98-107); Estimated GFR 100; Globulin 2.5 g/dL (2.4-3.5); Glucose 110 mg/dL (80-115); Protein, Total 5.2 g/dL (5.8-8.1); Sodium 142 mmol/L (136-145)
[2022-05-23 05:06] LABS: Hemoglobin 8.8 g/dL (12.0-15.5); Mean Corpuscular HGB CONC 32.2 g/dL (32.0-36.0); Mean Corpuscular Volume 96.1 fl (81.6-98.3); Mean Platelet Volume 11.6 fl (7.4-10.4); Platelet Count 226 10x3/uL (150-450); RBC Distribution Width 17.8 % (11.5-14.5); Red Blood Cell (RBC) Count 2.84 10x6/uL (3.90-5.03); White Blood Cell (WBC) Count 11.5 10x3/uL (3.5-10.5)
[2022-05-23 05:09] LABS: MDiff Complete? YES
[2022-05-23 06:51] LABS: Band 3 % (5-11); Lymphocytes 4 % (21-51); Monocytes 3 % (0-10); Neutrophil 90 % (42-75); Nucleated RBC 1 % (0)
[2022-05-23 06:54] LABS: Anisocytosis SLIGHT = 6-15 cells (100X) (0-5/hpf); Macrocytosis SLIGHT = 6-15 cells (100X) (0-5/hpf); Platelet Morphology Comment Appears Adequate; Polychromasia SLIGHT = 2-3 cells (100X) (0-2/hpf)
[2022-05-23] MEDS: clonazePAM 0.5 MG TAB PO SCH ×2 (08:24→20:17)
[2022-05-23] MEDS: HYDROcodone/Acetaminophen 10/325 mg Tablet PO PRN ×3 (08:24→20:17)
[2022-05-23] MEDS: Aspirin 81 mg Enteric Coated Tablet PO SCH (08:24)
[2022-05-23] MEDS: Carvedilol 25 MG TAB PO SCH ×2 (08:24→17:03)
[2022-05-23] MEDS: methylPREDNISolone Sod Succ 40 MG VIAL IVP SCH (08:25)
[2022-05-23] MEDS: cefTRIAXone\\ROCEPHIN 2 GM in Sodium Chloride 0.9% 100 ML IVPB SCH (11:14)
[2022-05-24] MEDS ORDERED: Furosemide 20 MG/2 ML VIAL SLOW IVP SCH (00:30)
[2022-05-24] MEDS ORDERED: Albumin 25% 25 GM/100 ML BOT IVPB SCH (00:30)
[2022-05-24] MEDS: HYDROcodone/Acetaminophen 10/325 mg Tablet PO PRN ×5 (01:07→18:27)
[2022-05-24 05:01] LABS: ALT (SGPT) 36 U/L (8-55); AST (SGOT) 25 U/L (5-34); Albumin 3.4 g/dL (3.4-4.8); Alkaline Phosphatase 89 U/L (40-110); Anion Gap 13 mmol/L (10-20); BUN (Urea Nitrogen) 16 mg/dL (9.8-20.1); Bilirubin, Total 0.3 mg/dL (0.2-1.2); Calc. Creatinine Clearance 87 mL/min (70-130); Calcium 8.5 mg/dL (7.8-10.44); Carbon Dioxide 26 mmol/L (23-31); Chloride 105 mmol/L (98-107); Estimated GFR 103; Globulin 2.2 g/dL (2.4-3.5); Glucose 96 mg/dL (80-115); Potassium 3.3 mmol/L (3.5-5.1); Protein, Total 5.6 g/dL (5.8-8.1); Sodium 141 mmol/L (136-145)
[2022-05-24 05:09] LABS: Mean Corpuscular HGB CONC 31.3 g/dL (32.0-36.0); Mean Corpuscular Hemoglobin 30.1 pg (27.0-33.0); Mean Corpuscular Volume 96.2 fl (81.6-98.3); Mean Platelet Volume 11.3 fl (7.4-10.4); Platelet Count 236 10x3/uL (150-450); RBC Distribution Width 18.5 % (11.5-14.5); Red Blood Cell (RBC) Count 2.66 10x6/uL (3.90-5.03); White Blood Cell (WBC) Count 10.1 10x3/uL (3.5-10.5)
[2022-05-24 05:29] LABS: MDiff Complete? YES
[2022-05-24 05:33] LABS: Band 12 % (5-11); Lymphocytes 7 % (21-51); Monocytes 6 % (0-10); Myelocyte 1 % (0-0); Neutrophil 74 % (42-75)
[2022-05-24 05:35] LABS: Platelet Morphology Comment Appears Adequate; Polychromasia SLIGHT = 2-3 cells (100X) (0-2/hpf)
[2022-05-24 05:36] LABS: Anisocytosis SLIGHT = 6-15 cells (100X) (0-5/hpf)
[2022-05-24] MEDS ORDERED: Potassium Chloride 20 MEQ TAB PO SCH (08:00)
[2022-05-24] MEDS: methylPREDNISolone Sod Succ 40 MG VIAL IVP SCH (08:08)
[2022-05-24] MEDS: clonazePAM 0.5 MG TAB PO SCH ×2 (08:08→20:03)
[2022-05-24] MEDS: Carvedilol 25 MG TAB PO SCH ×2 (08:08→16:38)
[2022-05-24] MEDS: Aspirin 81 mg Enteric Coated Tablet PO SCH (08:09)
[2022-05-24] MEDS: cefTRIAXone\\ROCEPHIN 2 GM in Sodium Chloride 0.9% 100 ML IVPB SCH (11:19)
[2022-05-25] MEDS ORDERED: Potassium Chloride 20 MEQ TAB PO SCH (02:45)
[2022-05-25] MEDS ORDERED: Albumin 25% 25 GM/100 ML BOT IVPB SCH (02:45)
[2022-05-25] MEDS ORDERED: Furosemide 20 MG/2 ML VIAL SLOW IVP SCH (02:45)
[2022-05-25] MEDS: HYDROcodone/Acetaminophen 10/325 mg Tablet PO PRN ×6 (03:25→23:33)
[2022-05-25 03:32] LABS: #Monocytes 0.4 10x3/uL (0.0-1.1); #Neutrophils 7.5 10x3/uL (1.5-8.4); %Basophils 0.2 % (0.0-2.0); %Eosinophils 0.3 % (0.0-6.0); %Lymphocytes 8.6 % (18.0-47.0); %Monocytes 4.1 % (0.0-10.0); %Neutrophils 82.8 % (40.0-75.0); Hemoglobin 8.1 g/dL (12.0-15.5); Mean Corpuscular HGB CONC 31.3 g/dL (32.0-36.0); Mean Corpuscular Hemoglobin 30.5 pg (27.0-33.0); Mean Corpuscular Volume 97.4 fl (81.6-98.3); Mean Platelet Volume 11.1 fl (7.4-10.4); Platelet Count 225 10x3/uL (150-450); RBC Distribution Width 19.2 % (11.5-14.5); Red Blood Cell (RBC) Count 2.66 10x6/uL (3.90-5.03); White Blood Cell (WBC) Count 9.1 10x3/uL (3.5-10.5)
[2022-05-25 03:47] LABS: ALT (SGPT) 32 U/L (8-55); AST (SGOT) 25 U/L (5-34); Albumin 3.7 g/dL (3.4-4.8); Alkaline Phosphatase 80 U/L (40-110); Anion Gap 13 mmol/L (10-20); BUN (Urea Nitrogen) 15 mg/dL (9.8-20.1); Bilirubin, Total 0.3 mg/dL (0.2-1.2); Calc. Creatinine Clearance 86 mL/min (70-130); Calcium 8.8 mg/dL (7.8-10.44); Carbon Dioxide 28 mmol/L (23-31); Chloride 104 mmol/L (98-107); Estimated GFR 103; Globulin 2.3 g/dL (2.4-3.5); Glucose 98 mg/dL (80-115); Magnesium 2.1 mg/dL (1.6-2.6); Potassium 4.4 mmol/L (3.5-5.1); Sodium 141 mmol/L (136-145)
[2022-05-25] MEDS: methylPREDNISolone Sod Succ 40 MG VIAL IVP SCH (07:55)
[2022-05-25] MEDS: Carvedilol 25 MG TAB PO SCH ×2 (07:56→16:52)
[2022-05-25] MEDS: Aspirin 81 mg Enteric Coated Tablet PO SCH (07:56)
[2022-05-25] MEDS: clonazePAM 0.5 MG TAB PO SCH ×2 (07:56→21:10)
[2022-05-25] MEDS: cefTRIAXone\\ROCEPHIN 2 GM in Sodium Chloride 0.9% 100 ML IVPB SCH (11:59)
[2022-05-25] MEDS: Loperamide HCl 2 MG CAP PO PRN ×2 (13:24→17:00)
[2022-05-26] MEDS: HYDROcodone/Acetaminophen 10/325 mg Tablet PO PRN ×4 (03:29→20:10)
[2022-05-26 03:47] LABS: #Eosinphils 0.1 10x3/uL (0.0-0.5); #Monocytes 0.4 10x3/uL (0.0-1.1); #Neutrophils 7.4 10x3/uL (1.5-8.4); %Basophils 0.1 % (0.0-2.0); %Eosinophils 0.6 % (0.0-6.0); %Lymphocytes 11.1 % (18.0-47.0); %Monocytes 4.6 % (0.0-10.0); %Neutrophils 81.3 % (40.0-75.0); Hemoglobin 8.5 g/dL (12.0-15.5); Mean Corpuscular Hemoglobin 30.1 pg (27.0-33.0); Mean Corpuscular Volume 97.2 fl (81.6-98.3); Mean Platelet Volume 10.8 fl (7.4-10.4); Platelet Count 218 10x3/uL (150-450); RBC Distribution Width 19.2 % (11.5-14.5); Red Blood Cell (RBC) Count 2.82 10x6/uL (3.90-5.03)
[2022-05-26 04:05] LABS: ALT (SGPT) 27 U/L (8-55); AST (SGOT) 19 U/L (5-34); Albumin 3.2 g/dL (3.4-4.8); Alkaline Phosphatase 77 U/L (40-110); Anion Gap 13 mmol/L (10-20); BUN (Urea Nitrogen) 14 mg/dL (9.8-20.1); Bilirubin, Total 0.3 mg/dL (0.2-1.2); Calc. Creatinine Clearance 94 mL/min (70-130); Calcium 8.8 mg/dL (7.8-10.44); Carbon Dioxide 30 mmol/L (23-31); Chloride 101 mmol/L (98-107); Estimated GFR 105; Globulin 2.3 g/dL (2.4-3.5); Glucose 98 mg/dL (80-115); Potassium 4.2 mmol/L (3.5-5.1); Protein, Total 5.5 g/dL (5.8-8.1); Sodium 140 mmol/L (136-145)
[2022-05-26] MEDS: methylPREDNISolone Sod Succ 40 MG VIAL IVP SCH (08:06)
[2022-05-26] MEDS: Carvedilol 25 MG TAB PO SCH ×2 (08:07→16:45)
[2022-05-26] MEDS: clonazePAM 0.5 MG TAB PO SCH ×2 (08:07→20:10)
[2022-05-26] MEDS: Aspirin 81 mg Enteric Coated Tablet PO SCH (08:07)
[2022-05-26] MEDS: Losartan 25 MG TAB PO SCH ×2 (09:23→20:11)
[2022-05-26 10:02] LABS: Phosphorus 2.9 mg/dL (2.3-4.7)
[2022-05-26] MEDS: cefTRIAXone\\ROCEPHIN 2 GM in Sodium Chloride 0.9% 100 ML IVPB SCH (12:07)
[2022-05-26] MEDS: Loperamide HCl 2 MG CAP PO PRN ×2 (12:19→16:45)
[2022-05-26] MEDS: Multivit, Therapeutic 1 TAB PO SCH (20:10)
[2022-05-26] MEDS: Folic Acid 1 MG TAB PO SCH (20:11)
[2022-05-27] MEDS: HYDROcodone/Acetaminophen 10/325 mg Tablet PO PRN ×5 (03:30→21:46)
[2022-05-27] MEDS: Loperamide HCl 2 MG CAP PO PRN (03:34)
[2022-05-27 05:00] LABS: Anion Gap 15 mmol/L (10-20); BUN (Urea Nitrogen) 12 mg/dL (9.8-20.1); Calc. Creatinine Clearance 92 mL/min (70-130); Calcium 8.8 mg/dL (7.8-10.44); Carbon Dioxide 30 mmol/L (23-31); Chloride 100 mmol/L (98-107); Estimated GFR 104; Glucose 79 mg/dL (80-115); Potassium 4.5 mmol/L (3.5-5.1); Sodium 140 mmol/L (136-145)
[2022-05-27 05:01] LABS: #Monocytes 0.5 10x3/uL (0.0-1.1); #Neutrophils 9.4 10x3/uL (1.5-8.4); %Basophils 0.2 % (0.0-2.0); %Eosinophils 0.4 % (0.0-6.0); %Lymphocytes 7.4 % (18.0-47.0); %Monocytes 4.4 % (0.0-10.0); %Neutrophils 86.4 % (40.0-75.0); Hemoglobin 9.2 g/dL (12.0-15.5); Mean Corpuscular HGB CONC 32.4 g/dL (32.0-36.0); Mean Corpuscular Hemoglobin 31.2 pg (27.0-33.0); Mean Corpuscular Volume 96.3 fl (81.6-98.3); Mean Platelet Volume 11.2 fl (7.4-10.4); Platelet Count 202 10x3/uL (150-450); RBC Distribution Width 19.5 % (11.5-14.5); Red Blood Cell (RBC) Count 2.95 10x6/uL (3.90-5.03); White Blood Cell (WBC) Count 10.9 10x3/uL (3.5-10.5)
[2022-05-27] MEDS: clonazePAM 0.5 MG TAB PO SCH ×2 (08:18→21:46)
[2022-05-27] MEDS: Carvedilol 25 MG TAB PO SCH ×2 (08:18→17:01)
[2022-05-27] MEDS: Losartan 25 MG TAB PO SCH (08:18)
[2022-05-27] MEDS: methylPREDNISolone Sod Succ 40 MG VIAL IVP SCH (08:18)
[2022-05-27] MEDS: Aspirin 81 mg Enteric Coated Tablet PO SCH (08:18)
[2022-05-27] MEDS: cefTRIAXone\\ROCEPHIN 2 GM in Sodium Chloride 0.9% 100 ML IVPB SCH (12:46)
[2022-05-27] MEDS: Ondansetron PF 4 MG/2 ML Vial IVP PRN (17:31)
[2022-05-27] MEDS: Multivit, Therapeutic 1 TAB PO SCH (21:47)
[2022-05-27] MEDS: Folic Acid 1 MG TAB PO SCH (21:47)
[2022-05-28] MEDS: Acetaminophen 325 MG TAB PO PRN (00:56)
[2022-05-28] MEDS ORDERED: Vancomycin HCl 1 GM in Sodium Chloride 0.9% 250 ML 250 ML IVPB SCH (02:30)
[2022-05-28 02:52] LABS: #Monocytes 0.3 10x3/uL (0.0-1.1); #Neutrophils 10.6 10x3/uL (1.5-8.4); %Basophils 0.1 % (0.0-2.0); %Eosinophils 0.1 % (0.0-6.0); %Lymphocytes 2.3 % (18.0-47.0); %Monocytes 2.2 % (0.0-10.0); %Neutrophils 94.6 % (40.0-75.0); Mean Corpuscular HGB CONC 32.3 g/dL (32.0-36.0); Mean Corpuscular Hemoglobin 30.8 pg (27.0-33.0); Mean Corpuscular Volume 95.5 fl (81.6-98.3); Mean Platelet Volume 10.5 fl (7.4-10.4); Platelet Count 189 10x3/uL (150-450); RBC Distribution Width 19.7 % (11.5-14.5); Red Blood Cell (RBC) Count 2.92 10x6/uL (3.90-5.03); White Blood Cell (WBC) Count 11.2 10x3/uL (3.5-10.5)
[2022-05-28 03:07] LABS: Lactic Acid 1.6 mmol/L (0.5-2.2)
[2022-05-28 03:12] LABS: Anion Gap 15 mmol/L (10-20); BUN (Urea Nitrogen) 12 mg/dL (9.8-20.1); Calc. Creatinine Clearance 82 mL/min (70-130); Calcium 8.5 mg/dL (7.8-10.44); Carbon Dioxide 28 mmol/L (23-31); Chloride 98 mmol/L (98-107); Estimated GFR 103; Glucose 110 mg/dL (80-115); Sodium 137 mmol/L (136-145)
[2022-05-28] MEDS ORDERED: Lactated Ringer's 1,000 ML IV SCH ×2 (03:15→07:00)
[2022-05-28] MEDS: HYDROcodone/Acetaminophen 10/325 mg Tablet PO PRN ×4 (03:16→20:10)
[2022-05-28 03:27] LABS: Bilirubin Neg (Negative); Blood, Urine 10 (Negative); Clarity Cloudy (Clear); Glucose, Urine (Dipstick) Normal (Negative); Ketone, Urine Negative (Negative); Leukocyte 100 (Negative); Nitrite Negative (Negative); Protein, Urine (Dipstick) Negative (Neg-Trace); Urobilinogen Normal mg/dL (Less than 2)
[2022-05-28 03:37] LABS: Bacteria/HPF Rare-Few HPF (None Seen); RBC/HPF 0-3 HPF (0-3); Squamous Epithelial 0-3 HPF (0-3); WBC/HPF 21-50 HPF (0-3); Yeast-Budding 1+ HPF (None Seen); Yeast-Hyphae 1+ HPF (None Seen)
[2022-05-28] MEDS ORDERED: Ondansetron ODT 4 MG TAB PO PRN (04:02)
[2022-05-28] MEDS: Cefepime 2 GM in Sodium Chloride 0.9% 100 ML IVPB SCH ×2 (04:15→16:16)
[2022-05-28 05:14] LABS: Lactic Acid 2.8 mmol/L (0.5-2.2)
[2022-05-28] MEDS: clonazePAM 0.5 MG TAB PO SCH ×2 (08:03→20:11)
[2022-05-28] MEDS: Aspirin 81 mg Enteric Coated Tablet PO SCH (08:04)
[2022-05-28] MEDS: Carvedilol 25 MG TAB PO SCH ×2 (08:04→17:24)
[2022-05-28] MEDS: methylPREDNISolone Sod Succ 40 MG VIAL IVP SCH (08:05)
[2022-05-28] MEDS ORDERED: Polyethylene Glycol 3350 17 GM Packet PO PRN (09:34)
[2022-05-28] MEDS ORDERED: Naloxone HCl 0.4 mg/ml Vial IV PRN (09:38)
[2022-05-28] MEDS: Loperamide HCl 2 MG CAP PO PRN (12:31)
[2022-05-28 12:54] LABS: Lactic Acid 2.6 mmol/L (0.5-2.2)
[2022-05-28 13:40] LABS: SARS-CoV-2 NAA Rapid Test Not Detected (NotDetected)
[2022-05-28 16:59] LABS: Campy jejuni + coli by PCR Negative (Negative); STEC Shiga Toxin 1+2 Negative (Negative); Salmonella spp. by PCR Negative (Negative); Shigella spp + EIEC by PCR Negative (Negative)
[2022-05-28] MEDS: Folic Acid 1 MG TAB PO SCH (20:10)
[2022-05-28] MEDS: Multivit, Therapeutic 1 TAB PO SCH (20:11)
[2022-05-29] MEDS: HYDROcodone/Acetaminophen 10/325 mg Tablet PO PRN ×5 (00:37→18:28)
[2022-05-29 03:23] LABS: #Monocytes 0.4 10x3/uL (0.0-1.1); #Neutrophils 8.3 10x3/uL (1.5-8.4); %Basophils 0.1 % (0.0-2.0); %Eosinophils 0.2 % (0.0-6.0); %Lymphocytes 5.4 % (18.0-47.0); %Monocytes 4.6 % (0.0-10.0); %Neutrophils 89.1 % (40.0-75.0); Hemoglobin 8.7 g/dL (12.0-15.5); Mean Corpuscular HGB CONC 31.6 g/dL (32.0-36.0); Mean Corpuscular Hemoglobin 30.6 pg (27.0-33.0); Mean Corpuscular Volume 96.8 fl (81.6-98.3); Mean Platelet Volume 9.9 fl (7.4-10.4); Platelet Count 161 10x3/uL (150-450); RBC Distribution Width 19.2 % (11.5-14.5); Red Blood Cell (RBC) Count 2.84 10x6/uL (3.90-5.03); White Blood Cell (WBC) Count 9.3 10x3/uL (3.5-10.5)
[2022-05-29] MEDS: Cefepime 2 GM in Sodium Chloride 0.9% 100 ML IVPB SCH ×2 (03:38→16:25)
[2022-05-29 03:49] LABS: Vancomycin, Trough 10.6 ug/mL
[2022-05-29 03:51] LABS: Anion Gap 14 mmol/L (10-20); BUN (Urea Nitrogen) 13 mg/dL (9.8-20.1); Calc. Creatinine Clearance 82 mL/min (70-130); Calcium 8.7 mg/dL (7.8-10.44); Carbon Dioxide 27 mmol/L (23-31); Chloride 103 mmol/L (98-107); Estimated GFR 105; Glucose 105 mg/dL (80-115); Potassium 4.4 mmol/L (3.5-5.1); Sodium 140 mmol/L (136-145)
[2022-05-29] MEDS: Polyethylene Glycol 3350 17 GM Packet PO SCH (08:15)
[2022-05-29] MEDS: clonazePAM 0.5 MG TAB PO SCH ×2 (09:33→20:01)
[2022-05-29] MEDS: Aspirin 81 mg Enteric Coated Tablet PO SCH (09:33)
[2022-05-29] MEDS: Carvedilol 25 MG TAB PO SCH ×2 (09:33→17:22)
[2022-05-29] MEDS: methylPREDNISolone Sod Succ 40 MG VIAL IVP SCH (09:34)
[2022-05-29 14:37] LABS: Vancomycin, Trough 16.8 ug/mL
[2022-05-29] MEDS: Loperamide HCl 2 MG CAP PO PRN (18:28)
[2022-05-29] MEDS: Multivit, Therapeutic 1 TAB PO SCH (20:01)
[2022-05-29] MEDS: Folic Acid 1 MG TAB PO SCH (20:01)
[2022-05-30 03:25] LABS: #Monocytes 0.4 10x3/uL (0.0-1.1); #Neutrophils 7.3 10x3/uL (1.5-8.4); %Basophils 0.1 % (0.0-2.0); %Eosinophils 0.1 % (0.0-6.0); %Lymphocytes 5.9 % (18.0-47.0); %Monocytes 4.3 % (0.0-10.0); %Neutrophils 89.2 % (40.0-75.0); Hemoglobin 8.1 g/dL (12.0-15.5); Mean Corpuscular HGB CONC 31.3 g/dL (32.0-36.0); Mean Corpuscular Hemoglobin 30.6 pg (27.0-33.0); Mean Corpuscular Volume 97.7 fl (81.6-98.3); Mean Platelet Volume 10.9 fl (7.4-10.4); Platelet Count 155 10x3/uL (150-450); RBC Distribution Width 19.3 % (11.5-14.5); Red Blood Cell (RBC) Count 2.65 10x6/uL (3.90-5.03); White Blood Cell (WBC) Count 8.2 10x3/uL (3.5-10.5)
[2022-05-30 03:43] LABS: Anion Gap 12 mmol/L (10-20); BUN (Urea Nitrogen) 15 mg/dL (9.8-20.1); Calc. Creatinine Clearance 86 mL/min (70-130); Calcium 8.8 mg/dL (7.8-10.44); Carbon Dioxide 31 mmol/L (23-31); Chloride 103 mmol/L (98-107); Estimated GFR 105; Glucose 113 mg/dL (80-115); Potassium 4.8 mmol/L (3.5-5.1); Sodium 141 mmol/L (136-145)
[2022-05-30] MEDS: Cefepime 2 GM in Sodium Chloride 0.9% 100 ML IVPB SCH ×2 (04:52→15:50)
[2022-05-30] MEDS: Carvedilol 25 MG TAB PO SCH ×2 (07:53→16:38)
[2022-05-30] MEDS: Aspirin 81 mg Enteric Coated Tablet PO SCH (07:53)
[2022-05-30] MEDS: methylPREDNISolone Sod Succ 40 MG VIAL IVP SCH (07:54)
[2022-05-30] MEDS: Polyethylene Glycol 3350 17 GM Packet PO SCH (07:54)
[2022-05-30] MEDS: clonazePAM 0.5 MG TAB PO SCH ×2 (07:54→20:31)
[2022-05-30] MEDS: Loperamide HCl 2 MG CAP PO PRN ×2 (08:54→17:58)
[2022-05-30] MEDS ORDERED: Losartan Potassium 50 MG TAB PO SCH (09:45)
[2022-05-30] MEDS: Diphenoxylate HCl/Atropine Tablet PO SCH ×3 (12:37→20:31)
[2022-05-30] MEDS: HYDROcodone/Acetaminophen 10/325 mg Tablet PO PRN (13:41)
[2022-05-30] MEDS: Folic Acid 1 MG TAB PO SCH (20:31)
[2022-05-30] MEDS: Multivit, Therapeutic 1 TAB PO SCH (20:31)
[2022-05-31] MEDS: Diphenoxylate HCl/Atropine Tablet PO SCH ×2 (03:18→08:54)
[2022-05-31 04:19] LABS: Anion Gap 16 mmol/L (10-20); BUN (Urea Nitrogen) 12 mg/dL (9.8-20.1); Calc. Creatinine Clearance 83 mL/min (70-130); Calcium 8.9 mg/dL (7.8-10.44); Carbon Dioxide 28 mmol/L (23-31); Chloride 102 mmol/L (98-107); Estimated GFR 105; Glucose 92 mg/dL (80-115); Potassium 4.3 mmol/L (3.5-5.1); Sodium 142 mmol/L (136-145)
[2022-05-31 04:30] LABS: #Eosinphils 0.1 10x3/uL (0.0-0.5); #Monocytes 0.4 10x3/uL (0.0-1.1); #Neutrophils 5.1 10x3/uL (1.5-8.4); %Basophils 0.2 % (0.0-2.0); %Lymphocytes 11.2 % (18.0-47.0); %Monocytes 6.8 % (0.0-10.0); %Neutrophils 79.5 % (40.0-75.0); Mean Corpuscular HGB CONC 31.3 g/dL (32.0-36.0); Mean Platelet Volume 11.2 fl (7.4-10.4); Platelet Count 143 10x3/uL (150-450); RBC Distribution Width 19.2 % (11.5-14.5); White Blood Cell (WBC) Count 6.5 10x3/uL (3.5-10.5)
[2022-05-31 05:36] LABS: Platelet Morphology Comment Appears Decreased; RBC Morphology Normal
[2022-05-31 05:58] VITALS: BMI 18.5
[2022-05-31] MEDS: Polyethylene Glycol 3350 17 GM Packet PO SCH (07:17)
[2022-05-31] MEDS: Aspirin 81 mg Enteric Coated Tablet PO SCH (07:46)
[2022-05-31] MEDS: Carvedilol 25 MG TAB PO SCH (07:46)
[2022-05-31] MEDS: clonazePAM 0.5 MG TAB PO SCH (07:46)
[2022-05-31] MEDS: methylPREDNISolone Sod Succ 40 MG VIAL IVP SCH (07:47)
[2022-05-31 08:30] VITALS: BP 133/70; TEMP 98
[2022-05-31] MEDS ORDERED: cefTRIAXone\\ROCEPHIN 2 GM in Sodium Chloride 0.9% 100 ML IVPB SCH (09:00)
[2022-05-31] MEDS ORDERED: Losartan 25 MG TAB PO SCH (09:00)
[2022-05-31] MEDS ORDERED: Fluconazole 100 MG TAB PO SCH (09:00)
== END 2022-05-31 11:05 | disposition home or self-care (01) | DRG 280 ==
LOC: CSHERS 15:18 → CSHICU 18:31 → CSHIMCU 18:55
PROVIDERS: ADMIT Family Medicine; ATTEND Hospitalist
PROC: 3E033XZ Introduction of Vasopressor into Peripheral Vein, Percutaneous Approach (ICD-10-PCS; principal; 2022-05-17)
PROC: 0JPT0WZ Removal of Totally Implantable Vascular Access Device from Trunk Subcutaneous Tissue and Fascia, Open Approach (ICD-10-PCS; 2022-05-20)
PROC: 02HV33Z Insertion of Infusion Device into Superior Vena Cava, Percutaneous Approach (ICD-10-PCS; 2022-05-22)
PROC: B5181ZA Fluoroscopy of Superior Vena Cava using Low Osmolar Contrast, Guidance (ICD-10-PCS; 2022-05-22)
PROC: B548ZZA Ultrasonography of Superior Vena Cava, Guidance (ICD-10-PCS; 2022-05-22)
DX: T80.211A Bloodstream infection due to central venous catheter, initial encounter (principal); I21.A1 Myocardial infarction type 2; A40.8 Other streptococcal sepsis; R65.21 Severe sepsis with septic shock; J18.9 Pneumonia, unspecified organism; N39.0 Urinary tract infection, site not specified; I51.81 Takotsubo syndrome; I47.1 Supraventricular tachycardia; Z20.822 Contact with and (suspected) exposure to COVID-19; F41.9 Anxiety disorder, unspecified; G89.4 Chronic pain syndrome; Z96.643 Presence of artificial hip joint, bilateral; E83.42 Hypomagnesemia; M81.0 Age-related osteoporosis without current pathological fracture; Y83.8 Other surgical procedures as the cause of abnormal reaction of the patient, or of later complication, without mention of misadventure at the time of the procedure; I27.20 Pulmonary hypertension, unspecified; R33.9 Retention of urine, unspecified; I10 Essential (primary) hypertension; E87.6 Hypokalemia; R19.7 Diarrhea, unspecified; R53.81 Other malaise; E86.0 Dehydration; I48.91 Unspecified atrial fibrillation; Z88.8 Allergy status to other drugs, medicaments and biological substances; Z88.6 Allergy status to analgesic agent; Z79.899 Other long term (current) drug therapy; Z85.01 Personal history of malignant neoplasm of esophagus; Z79.52 Long term (current) use of systemic steroids; Z92.21 Personal history of antineoplastic chemotherapy; Z92.3 Personal history of irradiation
CPT/HCPCS: 36415; 36416; 36569; 70553; 71045; 71250; 71275; 74177; 80048; 80053; 80202; 81001; 81003; 81015; 82553; 83605; 83630; 83690; 83735; 84100; 84145; 84443; 84484; 85025; 87040; 87077; 87086; 87103; 87149; 87186; 87324; 87449; 87505; 87633; 87811; 93005; 93010; 93306; 94760; 96361; 96365; 96366; 96368; 96372; 96375; C1751; J0171; J0692; J0696; J1642; J1650; J1885; J1940; J2060; J2405; J2543; J2704; J2920; J3010; J3370; J3465; J3475; J3480; J3490; J7050; J7120; J7512; P9047; Q9967; S0020

== ENCOUNTER 2022-06-16 12:45 | Emergency (ER) | payer MEDICARE ==
[2022-06-16 13:56] LABS: Hemoglobin 9.2 g/dL (12.0-15.5); Mean Corpuscular HGB CONC 31.7 g/dL (32.0-36.0); Mean Corpuscular Hemoglobin 28.3 pg (27.0-33.0); Mean Corpuscular Volume 89.2 fl (81.6-98.3); Mean Platelet Volume 9.7 fl (7.4-10.4); Platelet Count 330 10x3/uL (150-450); RBC Distribution Width 18.3 % (11.5-14.5); Red Blood Cell (RBC) Count 3.25 10x6/uL (3.90-5.03); White Blood Cell (WBC) Count 8.7 10x3/uL (3.5-10.5)
[2022-06-16 14:04] LABS: MDiff Complete? YES
[2022-06-16 14:11] LABS: ALT (SGPT) 21 U/L (8-55); AST (SGOT) 28 U/L (5-34); Albumin 3.5 g/dL (3.4-4.8); Alkaline Phosphatase 74 U/L (40-110); Anion Gap 18 mmol/L (10-20); BUN (Urea Nitrogen) 13 mg/dL (9.8-20.1); Bilirubin, Total 0.7 mg/dL (0.2-1.2); Calc. Creatinine Clearance 0 mL/min (70-130); Calcium 9.3 mg/dL (7.8-10.44); Carbon Dioxide 24 mmol/L (23-31); Chloride 101 mmol/L (98-107); Estimated GFR 103; Glucose 124 mg/dL (80-115); Magnesium 1.8 mg/dL (1.6-2.6); Potassium 3.8 mmol/L (3.5-5.1); Protein, Total 6.5 g/dL (5.8-8.1); Sodium 139 mmol/L (136-145)
[2022-06-16 14:35] LABS: CKMB 1.5 ng/mL (0-6.6)
[2022-06-16 14:45] LABS: Band 2 % (5-11)
[2022-06-16 14:47] LABS: Lymphocytes 4 % (21-51); Monocytes 5 % (0-10); Neutrophil 89 % (42-75)
[2022-06-16 14:48] LABS: Platelet Morphology Comment Appears Adequate
== END 2022-06-16 16:02 | disposition home or self-care (01) ==
LOC: CSHERS 12:45
DX: E86.0 Dehydration (principal); D63.8 Anemia in other chronic diseases classified elsewhere; R19.7 Diarrhea, unspecified; R77.8 Other specified abnormalities of plasma proteins; I10 Essential (primary) hypertension
CPT/HCPCS: 80053; 82553; 83735; 84484; 85025; 93005

== ENCOUNTER 2022-06-18 18:55 | Inpatient (IN) | payer MEDICARE ==
[2022-06-18 20:20] LABS: Bilirubin Neg (Negative); Blood, Urine 150 (Negative); Clarity Slightly Cloudy (Clear); Glucose, Urine (Dipstick) Normal (Negative); Ketone, Urine 5 mg/dL (Negative); Leukocyte 500 (Negative); Nitrite Negative (Negative); Protein, Urine (Dipstick) 100 mg/dl (Neg-Trace); Urobilinogen Normal mg/dL (Less than 2)
[2022-06-18 20:32] LABS: #Monocytes 0.9 10x3/uL (0.0-1.1); #Neutrophils 11.5 10x3/uL (1.5-8.4); %Basophils 0.2 % (0.0-2.0); %Eosinophils 0.1 % (0.0-6.0); %Lymphocytes 4.6 % (18.0-47.0); %Monocytes 6.9 % (0.0-10.0); %Neutrophils 87.7 % (40.0-75.0); Hemoglobin 8.9 g/dL (12.0-15.5); Mean Corpuscular HGB CONC 31.9 g/dL (32.0-36.0); Mean Corpuscular Hemoglobin 28.5 pg (27.0-33.0); Mean Corpuscular Volume 89.4 fl (81.6-98.3); Mean Platelet Volume 9.7 fl (7.4-10.4); Platelet Count 342 10x3/uL (150-450); RBC Distribution Width 18.6 % (11.5-14.5); Red Blood Cell (RBC) Count 3.12 10x6/uL (3.90-5.03); White Blood Cell (WBC) Count 13.1 10x3/uL (3.5-10.5)
[2022-06-18 20:45] LABS: WBC/HPF 21-50 HPF (0-3)
[2022-06-18 20:46] LABS: Bacteria/HPF 1+ HPF (None Seen); Calcium Oxalate Crystals 1+ HPF (None Seen); Mucous/LPF 1+ LPF (<2+); Squamous Epithelial 0-3 HPF (0-3); Yeast-Budding 3+ HPF (None Seen)
[2022-06-18 20:51] LABS: ALT (SGPT) 22 U/L (8-55); AST (SGOT) 19 U/L (5-34); Albumin 3.2 g/dL (3.4-4.8); Alkaline Phosphatase 80 U/L (40-110); Anion Gap 16 mmol/L (10-20); BUN (Urea Nitrogen) 19 mg/dL (9.8-20.1); Bilirubin, Total 0.5 mg/dL (0.2-1.2); Calc. Creatinine Clearance 0 mL/min (70-130); Calcium 8.9 mg/dL (7.8-10.44); Carbon Dioxide 23 mmol/L (23-31); Chloride 98 mmol/L (98-107); Estimated GFR 100; Glucose 121 mg/dL (80-115); Lipase 17 U/L (8-78); Protein, Total 6.2 g/dL (5.8-8.1); Sodium 134 mmol/L (136-145)
[2022-06-18 20:56] LABS: SARS-CoV-2 NAA Rapid Test Not Detected (NotDetected)
[2022-06-18 21:12] LABS: CKMB 0.8 ng/mL (0-6.6)
[2022-06-18] MEDS ORDERED: Vancomycin 1 GM VIAL ONE ×2 (21:33→21:38)
[2022-06-18] MEDS ORDERED: Potassium Chloride 20 MEQ/100 ML PREMIX BAG ONE (21:33)
[2022-06-18] MEDS ORDERED: Cefepime 2 GM VIAL ONE (21:33)
[2022-06-18] MEDS ORDERED: HYDROcodone/Acetaminophen 5/325 mg Tablet ONE (22:33)
[2022-06-18 23:54] LABS: Lactic Acid 1.4 mmol/L (0.5-2.2)
[2022-06-19] MEDS ORDERED: Communication Order-Pharmacy FS ONE (00:34)
[2022-06-19] MEDS ORDERED: HYDROcodone/Acetaminophen 10/325 mg Tablet PO PRN (00:56)
[2022-06-19] MEDS ORDERED: CATHETER MC SCH (01:00)
[2022-06-19] MEDS ORDERED: Thiamine HCl 200 MG/2 ML VIAL SLOW IVP SCH (01:45)
[2022-06-19] MEDS ORDERED: Potassium Chloride 20 MEQ in Lactated Ringer's 1,000 ML IV SCH (02:00)
[2022-06-19] MEDS ORDERED: Multivitamins, Adult 10 ML, Folic Acid 1 MG, Thiamine HCl 100 MG in Dextrose 5 %-0.45 %... IV SCH (02:00)
[2022-06-19] MEDS: Hydrocortisone Sod Succ/PF 100 mg/2 ml Vial IVP SCH ×2 (02:37→13:56)
[2022-06-19 05:33] LABS: MDiff Complete? YES; Mean Corpuscular HGB CONC 32.1 g/dL (32.0-36.0); Mean Corpuscular Hemoglobin 28.6 pg (27.0-33.0); Mean Corpuscular Volume 88.9 fl (81.6-98.3); Mean Platelet Volume 9.9 fl (7.4-10.4); Platelet Count 291 10x3/uL (150-450); RBC Distribution Width 18.7 % (11.5-14.5); White Blood Cell (WBC) Count 12.4 10x3/uL (3.5-10.5)
[2022-06-19 05:46] LABS: Anion Gap 11 mmol/L (10-20); BUN (Urea Nitrogen) 15 mg/dL (9.8-20.1); Calc. Creatinine Clearance 62 mL/min (70-130); Calcium 8.6 mg/dL (7.8-10.44); Carbon Dioxide 24 mmol/L (23-31); Chloride 102 mmol/L (98-107); Estimated GFR 105; Glucose 153 mg/dL (80-115); Potassium 3.3 mmol/L (3.5-5.1); Sodium 134 mmol/L (136-145)
[2022-06-19 06:07] LABS: Band 6 % (5-11); Lymphocytes 3 % (21-51); Monocytes 5 % (0-10); Neutrophil 86 % (42-75)
[2022-06-19 06:08] LABS: Anisocytosis SLIGHT = 6-15 cells (100X) (0-5/hpf); Hypochromia SLIGHT = 6-15 cells (100X) (0-5/hpf); Platelet Morphology Comment Appears Adequate
[2022-06-19] MEDS ORDERED: Dextrose 50% Abboject 50 ML SYRINGE SLOW IVP PRN (06:21)
[2022-06-19] MEDS ORDERED: Dextrose 5% in Water 1,000 ML IV PRN (06:21)
[2022-06-19 07:15] LABS: Magnesium 1.6 mg/dL (1.6-2.6)
[2022-06-19] MEDS ORDERED: Potassium Chloride 20 MEQ in Premix Bag 1 BAG IVPB SCH (08:00)
[2022-06-19] MEDS ORDERED: Electrolyte Replacement Protocol 1 EACH FS PRN (08:06)
[2022-06-19] MEDS: Potassium Bicarbonate/Cit Ac 20 MEQ TAB PO SCH (08:42)
[2022-06-19] MEDS: Polyethylene Glycol 3350 17 GM Packet PO SCH ×2 (08:43→21:51)
[2022-06-19] MEDS: Losartan 25 MG TAB PO SCH (08:44)
[2022-06-19] MEDS: Aspirin 81 mg Enteric Coated Tablet PO SCH (08:44)
[2022-06-19] MEDS: Carvedilol 25 MG TAB PO SCH ×2 (08:44→21:43)
[2022-06-19] MEDS ORDERED: clonazePAM 0.5 MG TAB PO SCH (09:00)
[2022-06-19] MEDS ORDERED: Thiamine 100 MG TAB PO SCH (09:00)
[2022-06-19] MEDS ORDERED: Folic Acid 1 MG TAB PO SCH (09:00)
[2022-06-19] MEDS ORDERED: FLU VACC QS2022-23(65YR UP)/PF 240 MCG/0.7 ML SYRINGE IM ONE (09:00)
[2022-06-19] MEDS: Ferrous Sulfate 325 MG TAB PO SCH (09:01)
[2022-06-19] MEDS: Fluconazole 100 MG TAB PO SCH (09:17)
[2022-06-19] MEDS ORDERED: Magnesium 2 GM/50 ML(in water) 2 GM in Premix Bag 1 BAG IVPB SCH (09:30)
[2022-06-19 09:58] LABS: INR-International Normal Ratio 1.1; PTT 33.6 sec (22.0-33.0); Prothrombin Time 11.6 sec (9.5-12.1)
[2022-06-19 10:04] LABS: Cardiac Risk 2.8 (Less than 4.5); Cholesterol 108 mg/dl (< 200 Desired); HDL Cholesterol 39 mg/dL (>60 Neg Risk); LDL Cholesterol, Calculated 52 mg/dL; Phosphorus 2.3 mg/dL (2.3-4.7); Triglycerides 84 mg/dL (Less than 150)
[2022-06-19] MEDS: Cefepime 2 GM in Sodium Chloride 0.9% 100 ML IVPB SCH ×2 (10:30→21:43)
[2022-06-19] MEDS ORDERED: Naloxone HCl 0.4 mg/ml Vial IV PRN (11:40)
[2022-06-19] MEDS: Vancomycin HCl 500 MG in Sodium Chloride 0.9% 100 ML IVPB SCH (12:08)
[2022-06-19] MEDS ORDERED: Promethazine 25 MG TAB PO PRN (12:35)
[2022-06-19] MEDS: HYDROcodone/Acetaminophen 5/325 mg Tablet PO PRN ×3 (13:56→21:44)
[2022-06-19] MEDS ORDERED: LYTES IV SCH (14:00)
[2022-06-19] MEDS ORDERED: TRACE ELEMENT IV SCH (14:00)
[2022-06-19] MEDS ORDERED: D15W AA IV SCH (14:00)
[2022-06-19 14:17] LABS: Potassium 3.9 mmol/L (3.5-5.1)
[2022-06-19 15:20] VITALS: BMI 13.8
[2022-06-19] MEDS: HumaLOG 300 UNITS/3 ML VIAL SC PRN (16:49)
[2022-06-19] MEDS: clonazePAM 0.5 MG TAB PO SCH (17:06)
[2022-06-19] MEDS: Thiamine HCl 200 MG/2 ML VIAL SLOW IVP SCH (21:44)
[2022-06-20] MEDS: Vancomycin HCl 500 MG in Sodium Chloride 0.9% 100 ML IVPB SCH (00:18)
[2022-06-20] MEDS: Hydrocortisone Sod Succ/PF 100 mg/2 ml Vial IVP SCH ×2 (02:20→16:09)
[2022-06-20] MEDS: HYDROcodone/Acetaminophen 5/325 mg Tablet PO PRN ×5 (02:21→20:31)
[2022-06-20] MEDS ORDERED: Dextrose 10% in Water 1,000 ML ONE (05:11)
[2022-06-20] MEDS: clonazePAM 0.5 MG TAB PO SCH ×2 (05:16→17:40)
[2022-06-20] MEDS: Dextrose 10% in Water 1,000 ML IV SCH ×2 (05:27→17:51)
[2022-06-20 06:48] LABS: #Neutrophils 8.1 10x3/uL (1.5-8.4); %Basophils 0.1 % (0.0-2.0); %Eosinophils 0.2 % (0.0-6.0); %Lymphocytes 5.3 % (18.0-47.0); %Monocytes 10.1 % (0.0-10.0); %Neutrophils 83.8 % (40.0-75.0); Hemoglobin 7.8 g/dL (12.0-15.5); Mean Corpuscular Hemoglobin 28.2 pg (27.0-33.0); Mean Corpuscular Volume 88.1 fl (81.6-98.3); Mean Platelet Volume 9.4 fl (7.4-10.4); Platelet Count 259 10x3/uL (150-450); RBC Distribution Width 18.5 % (11.5-14.5); Red Blood Cell (RBC) Count 2.77 10x6/uL (3.90-5.03); White Blood Cell (WBC) Count 9.7 10x3/uL (3.5-10.5)
[2022-06-20 07:01] LABS: ALT (SGPT) 18 U/L (8-55); AST (SGOT) 17 U/L (5-34); Albumin 2.7 g/dL (3.4-4.8); Alkaline Phosphatase 75 U/L (40-110); Anion Gap 13 mmol/L (10-20); BUN (Urea Nitrogen) 15 mg/dL (9.8-20.1); Bilirubin, Total 0.3 mg/dL (0.2-1.2); Calc. Creatinine Clearance 65 mL/min (70-130); Calcium 8.7 mg/dL (7.8-10.44); Carbon Dioxide 24 mmol/L (23-31); Chloride 100 mmol/L (98-107); Estimated GFR 107; Globulin 3.1 g/dL (2.4-3.5); Glucose 115 mg/dL (80-115); Magnesium 1.8 mg/dL (1.6-2.6); Potassium 3.2 mmol/L (3.5-5.1); Protein, Total 5.8 g/dL (5.8-8.1); Sodium 134 mmol/L (136-145)
[2022-06-20] MEDS ORDERED: Potassium Chloride 20 MEQ in Premix Bag 1 BAG IVPB SCH (08:00)
[2022-06-20] MEDS ORDERED: Magnesium 2 GM/50 ML(in water) 2 GM in Premix Bag 1 BAG IVPB SCH ×2 (08:00→10:30)
[2022-06-20 10:23] LABS: Vancomycin, Trough 3.5 ug/mL
[2022-06-20] MEDS: Cefepime 2 GM in Sodium Chloride 0.9% 100 ML IVPB SCH ×2 (10:49→23:00)
[2022-06-20] MEDS: Ferrous Sulfate 325 MG TAB PO SCH (11:38)
[2022-06-20] MEDS: Carvedilol 25 MG TAB PO SCH ×2 (11:38→20:33)
[2022-06-20] MEDS: Fluconazole 100 MG TAB PO SCH (11:39)
[2022-06-20] MEDS: Losartan 25 MG TAB PO SCH (11:39)
[2022-06-20] MEDS: Vancomycin HCl 1 GM in Sodium Chloride 0.9% 250 ML 250 ML IVPB SCH (12:07)
[2022-06-20] MEDS ORDERED: Potassium Phosphate 15 MMOL in Sodium Chloride 0.9% 100 ML IVPB SCH (13:00)
[2022-06-20] MEDS ORDERED: Multivitamins, Adult 10 ML, TRACE ELEMENT CONCENTRATE 1 ML in D15W-AA 5% with Lytes 2,0... IV SCH (14:00)
[2022-06-20] MEDS: Aspirin 81 mg Enteric Coated Tablet PO SCH (14:22)
[2022-06-20] MEDS: Potassium Bicarbonate/Cit Ac 20 MEQ TAB PO SCH (14:23)
[2022-06-20] MEDS: Polyethylene Glycol 3350 17 GM Packet PO SCH ×2 (14:23→20:33)
[2022-06-20] MEDS: Thiamine HCl 200 MG/2 ML VIAL SLOW IVP SCH (20:31)
[2022-06-21] MEDS: D5 LR w/20 mEq KCL 1,000 ML IV SCH ×2 (00:18→11:30)
[2022-06-21] MEDS: Vancomycin HCl 1 GM in Sodium Chloride 0.9% 250 ML 250 ML IVPB SCH ×3 (00:18→23:51)
[2022-06-21] MEDS: Hydrocortisone Sod Succ/PF 100 mg/2 ml Vial IVP SCH ×2 (01:13→15:53)
[2022-06-21] MEDS: HYDROcodone/Acetaminophen 5/325 mg Tablet PO PRN ×3 (01:43→23:52)
[2022-06-21] MEDS: clonazePAM 0.5 MG TAB PO SCH ×2 (05:21→15:53)
[2022-06-21 05:22] LABS: #Monocytes 0.3 10x3/uL (0.0-1.1); #Neutrophils 9.4 10x3/uL (1.5-8.4); %Basophils 0.1 % (0.0-2.0); %Eosinophils 0.1 % (0.0-6.0); %Monocytes 2.6 % (0.0-10.0); %Neutrophils 94.5 % (40.0-75.0); Hemoglobin 8.2 g/dL (12.0-15.5); Mean Corpuscular HGB CONC 31.7 g/dL (32.0-36.0); Mean Corpuscular Hemoglobin 28.1 pg (27.0-33.0); Mean Corpuscular Volume 88.7 fl (81.6-98.3); Mean Platelet Volume 9.7 fl (7.4-10.4); Platelet Count 292 10x3/uL (150-450); Red Blood Cell (RBC) Count 2.92 10x6/uL (3.90-5.03)
[2022-06-21 05:42] LABS: ALT (SGPT) 18 U/L (8-55); AST (SGOT) 20 U/L (5-34); Albumin 2.7 g/dL (3.4-4.8); Alkaline Phosphatase 75 U/L (40-110); Anion Gap 15 mmol/L (10-20); BUN (Urea Nitrogen) 9 mg/dL (9.8-20.1); Bilirubin, Total 0.4 mg/dL (0.2-1.2); Calc. Creatinine Clearance 65 mL/min (70-130); Calcium 8.6 mg/dL (7.8-10.44); Carbon Dioxide 21 mmol/L (23-31); Chloride 100 mmol/L (98-107); Estimated GFR 107; Globulin 3.3 g/dL (2.4-3.5); Glucose 116 mg/dL (80-115); Phosphorus 3.2 mg/dL (2.3-4.7); Potassium 3.1 mmol/L (3.5-5.1); Sodium 133 mmol/L (136-145)
[2022-06-21] MEDS ORDERED: Potassium Chloride 20 MEQ TAB PO SCH ×2 (08:00→17:30)
[2022-06-21] MEDS ORDERED: Magnesium 2 GM/50 ML(in water) 2 GM in Premix Bag 1 BAG IVPB SCH (08:00)
[2022-06-21] MEDS: Ferrous Sulfate 325 MG TAB PO SCH (09:45)
[2022-06-21] MEDS: Carvedilol 25 MG TAB PO SCH ×2 (09:45→20:13)
[2022-06-21] MEDS: Aspirin 81 mg Enteric Coated Tablet PO SCH (09:45)
[2022-06-21] MEDS: Losartan 25 MG TAB PO SCH (09:46)
[2022-06-21] MEDS: Pantoprazole 40 MG VIAL IVP SCH (09:46)
[2022-06-21] MEDS: Cefepime 2 GM in Sodium Chloride 0.9% 100 ML IVPB SCH (09:46)
[2022-06-21] MEDS: Polyethylene Glycol 3350 17 GM Packet PO SCH ×2 (09:46→20:12)
[2022-06-21] MEDS: Potassium Bicarbonate/Cit Ac 20 MEQ TAB PO SCH (09:46)
[2022-06-21 14:16] LABS: Potassium 3.5 mmol/L (3.5-5.1)
[2022-06-21] MEDS: Thiamine HCl 200 MG/2 ML VIAL SLOW IVP SCH (20:13)
[2022-06-21] MEDS: HumaLOG 300 UNITS/3 ML VIAL SC PRN (20:33)
[2022-06-21 23:56] LABS: Vancomycin, Trough 15.2 ug/mL
[2022-06-22] MEDS: Hydrocortisone Sod Succ/PF 100 mg/2 ml Vial IVP SCH ×2 (03:45→14:18)
[2022-06-22 03:52] LABS: #Monocytes 0.6 10x3/uL (0.0-1.1); #Neutrophils 5.4 10x3/uL (1.5-8.4); %Basophils 0.2 % (0.0-2.0); %Lymphocytes 7.8 % (18.0-47.0); %Monocytes 8.5 % (0.0-10.0); %Neutrophils 82.7 % (40.0-75.0); Hemoglobin 7.4 g/dL (12.0-15.5); Mean Corpuscular HGB CONC 30.6 g/dL (32.0-36.0); Mean Corpuscular Hemoglobin 27.3 pg (27.0-33.0); Mean Corpuscular Volume 89.3 fl (81.6-98.3); Mean Platelet Volume 10.1 fl (7.4-10.4); Platelet Count 254 10x3/uL (150-450); RBC Distribution Width 18.8 % (11.5-14.5); Red Blood Cell (RBC) Count 2.71 10x6/uL (3.90-5.03); White Blood Cell (WBC) Count 6.6 10x3/uL (3.5-10.5)
[2022-06-22] MEDS: HYDROcodone/Acetaminophen 5/325 mg Tablet PO PRN ×5 (04:07→23:41)
[2022-06-22 04:08] LABS: ALT (SGPT) 20 U/L (8-55); AST (SGOT) 18 U/L (5-34); Albumin 2.4 g/dL (3.4-4.8); Alkaline Phosphatase 70 U/L (40-110); Anion Gap 11 mmol/L (10-20); BUN (Urea Nitrogen) 10 mg/dL (9.8-20.1); Bilirubin, Total 0.4 mg/dL (0.2-1.2); Calc. Creatinine Clearance 64 mL/min (70-130); Calcium 8.5 mg/dL (7.8-10.44); Carbon Dioxide 23 mmol/L (23-31); Chloride 103 mmol/L (98-107); Estimated GFR 106; Globulin 2.9 g/dL (2.4-3.5); Glucose 113 mg/dL (80-115); Magnesium 2.1 mg/dL (1.6-2.6); Phosphorus 2.8 mg/dL (2.3-4.7); Potassium 3.6 mmol/L (3.5-5.1); Protein, Total 5.3 g/dL (5.8-8.1); Sodium 133 mmol/L (136-145)
[2022-06-22] MEDS: clonazePAM 0.5 MG TAB PO SCH ×2 (05:19→17:14)
[2022-06-22] MEDS: D5 LR w/20 mEq KCL 1,000 ML IV SCH ×2 (06:43→14:18)
[2022-06-22] MEDS: Pantoprazole 40 MG VIAL IVP SCH (08:45)
[2022-06-22] MEDS: Losartan 25 MG TAB PO SCH (08:45)
[2022-06-22] MEDS: Ferrous Sulfate 325 MG TAB PO SCH (08:45)
[2022-06-22] MEDS: Carvedilol 25 MG TAB PO SCH ×2 (08:45→20:21)
[2022-06-22] MEDS: Aspirin 81 mg Enteric Coated Tablet PO SCH (08:45)
[2022-06-22] MEDS: Potassium Bicarbonate/Cit Ac 20 MEQ TAB PO SCH (08:45)
[2022-06-22] MEDS: Polyethylene Glycol 3350 17 GM Packet PO SCH (08:46)
[2022-06-22] MEDS: Vancomycin HCl 1 GM in Sodium Chloride 0.9% 250 ML 250 ML IVPB SCH (11:09)
[2022-06-22] MEDS: HumaLOG 300 UNITS/3 ML VIAL SC PRN (18:00)
[2022-06-22 18:23] LABS: Iron 12 ug/dL (50-170); Iron Binding Capacity, Total 131 mcg/dL (265-497)
[2022-06-22] MEDS ORDERED: Ampicillin 2 GM VIAL ONE (20:15)
[2022-06-22] MEDS: Ampicillin 2 GM in Sodium Chloride 0.9% 100 ML IVPB SCH ×2 (20:22→22:40)
[2022-06-22] MEDS: Thiamine HCl 200 MG/2 ML VIAL SLOW IVP SCH (20:22)
[2022-06-22 20:44] LABS: Hemoglobin 9.2 g/dL (12.0-15.5)
[2022-06-23] MEDS ORDERED: hydrALAZINE 20 MG/ML VIAL SLOW IVP SCH (00:30)
[2022-06-23] MEDS: Hydrocortisone Sod Succ/PF 100 mg/2 ml Vial IVP SCH ×2 (01:14→13:54)
[2022-06-23] MEDS: Ampicillin 2 GM in Sodium Chloride 0.9% 100 ML IVPB SCH ×6 (01:30→22:02)
[2022-06-23 04:16] LABS: #Monocytes 0.6 10x3/uL (0.0-1.1); #Neutrophils 8.5 10x3/uL (1.5-8.4); %Basophils 0.2 % (0.0-2.0); %Eosinophils 0.1 % (0.0-6.0); %Monocytes 6.2 % (0.0-10.0); %Neutrophils 87.7 % (40.0-75.0); Hemoglobin 8.9 g/dL (12.0-15.5); Mean Corpuscular HGB CONC 31.9 g/dL (32.0-36.0); Mean Corpuscular Hemoglobin 28.1 pg (27.0-33.0); Mean Platelet Volume 10.3 fl (7.4-10.4); Platelet Count 266 10x3/uL (150-450); RBC Distribution Width 17.6 % (11.5-14.5); Red Blood Cell (RBC) Count 3.17 10x6/uL (3.90-5.03); White Blood Cell (WBC) Count 9.7 10x3/uL (3.5-10.5)
[2022-06-23 04:32] LABS: ALT (SGPT) 25 U/L (8-55); AST (SGOT) 20 U/L (5-34); Albumin 2.3 g/dL (3.4-4.8); Alkaline Phosphatase 68 U/L (40-110); Anion Gap 15 mmol/L (10-20); BUN (Urea Nitrogen) 9 mg/dL (9.8-20.1); Bilirubin, Total 0.4 mg/dL (0.2-1.2); Calc. Creatinine Clearance 62 mL/min (70-130); Calcium 8.4 mg/dL (7.8-10.44); Carbon Dioxide 21 mmol/L (23-31); Chloride 105 mmol/L (98-107); Estimated GFR 106; Glucose 119 mg/dL (80-115); Magnesium 1.6 mg/dL (1.6-2.6); Phosphorus 2.6 mg/dL (2.3-4.7); Protein, Total 5.3 g/dL (5.8-8.1); Sodium 138 mmol/L (136-145)
[2022-06-23 04:41] LABS: Potassium 2.5 mmol/L (3.5-5.1)
[2022-06-23] MEDS ORDERED: Magnesium 2 GM/50 ML(in water) 2 GM in Premix Bag 1 BAG IVPB SCH ×2 (05:00→08:15)
[2022-06-23] MEDS: Potassium Chloride 20 MEQ TAB PO SCH ×4 (05:36→13:53)
[2022-06-23] MEDS: clonazePAM 0.5 MG TAB PO SCH ×2 (05:39→17:31)
[2022-06-23] MEDS: D5 LR w/20 mEq KCL 1,000 ML IV SCH ×2 (07:24→17:31)
[2022-06-23] MEDS: Aspirin 81 mg Enteric Coated Tablet PO SCH (08:24)
[2022-06-23] MEDS: Carvedilol 25 MG TAB PO SCH ×2 (08:24→21:02)
[2022-06-23] MEDS: Ferrous Sulfate 325 MG TAB PO SCH (08:24)
[2022-06-23] MEDS: Pantoprazole 40 MG VIAL IVP SCH (08:24)
[2022-06-23] MEDS: Losartan 25 MG TAB PO SCH (08:24)
[2022-06-23] MEDS: HYDROcodone/Acetaminophen 5/325 mg Tablet PO PRN ×2 (08:25→21:02)
[2022-06-23] MEDS: Potassium Bicarbonate/Cit Ac 20 MEQ TAB PO SCH (08:48)
[2022-06-23] MEDS: Polyethylene Glycol 3350 17 GM Packet PO SCH (08:48)
[2022-06-23] MEDS: Ondansetron ODT 4 MG TAB PO PRN (09:10)
[2022-06-23] MEDS ORDERED: Iopamidol 300 61% 100 ML VIAL FS ONE (11:16)
[2022-06-23 19:29] LABS: Hemoglobin 8.2 g/dL (12.0-15.5)
[2022-06-23] MEDS: Thiamine HCl 200 MG/2 ML VIAL SLOW IVP SCH (21:02)
[2022-06-24 00:56] LABS: Hemoglobin 8.3 g/dL (12.0-15.5)
[2022-06-24] MEDS: HYDROcodone/Acetaminophen 5/325 mg Tablet PO PRN ×4 (01:25→14:57)
[2022-06-24] MEDS: Hydrocortisone Sod Succ/PF 100 mg/2 ml Vial IVP SCH ×2 (01:25→14:57)
[2022-06-24] MEDS: Ampicillin 2 GM in Sodium Chloride 0.9% 100 ML IVPB SCH ×4 (02:00→14:57)
[2022-06-24 05:06] LABS: #Monocytes 0.5 10x3/uL (0.0-1.1); #Neutrophils 9.7 10x3/uL (1.5-8.4); %Basophils 0.1 % (0.0-2.0); %Eosinophils 0.1 % (0.0-6.0); %Lymphocytes 4.3 % (18.0-47.0); %Monocytes 4.4 % (0.0-10.0); %Neutrophils 90.1 % (40.0-75.0); Hemoglobin 8.5 g/dL (12.0-15.5); Mean Corpuscular HGB CONC 31.8 g/dL (32.0-36.0); Mean Corpuscular Hemoglobin 28.1 pg (27.0-33.0); Mean Corpuscular Volume 88.1 fl (81.6-98.3); Mean Platelet Volume 9.9 fl (7.4-10.4); Platelet Count 246 10x3/uL (150-450); RBC Distribution Width 17.9 % (11.5-14.5); Red Blood Cell (RBC) Count 3.03 10x6/uL (3.90-5.03); White Blood Cell (WBC) Count 10.8 10x3/uL (3.5-10.5)
[2022-06-24] MEDS: clonazePAM 0.5 MG TAB PO SCH (05:10)
[2022-06-24 05:19] LABS: ALT (SGPT) 23 U/L (8-55); AST (SGOT) 15 U/L (5-34); Albumin 2.5 g/dL (3.4-4.8); Alkaline Phosphatase 66 U/L (40-110); Anion Gap 12 mmol/L (10-20); BUN (Urea Nitrogen) 7 mg/dL (9.8-20.1); Bilirubin, Total 0.5 mg/dL (0.2-1.2); Calc. Creatinine Clearance 61 mL/min (70-130); Calcium 8.4 mg/dL (7.8-10.44); Carbon Dioxide 26 mmol/L (23-31); Chloride 102 mmol/L (98-107); Estimated GFR 105; Glucose 115 mg/dL (80-115); Magnesium 1.9 mg/dL (1.6-2.6); Phosphorus 1.8 mg/dL (2.3-4.7); Potassium 3.3 mmol/L (3.5-5.1); Protein, Total 5.5 g/dL (5.8-8.1); Sodium 137 mmol/L (136-145)
[2022-06-24] MEDS: D5 LR w/20 mEq KCL 1,000 ML IV SCH (05:54)
[2022-06-24] MEDS ORDERED: Magnesium 2 GM/50 ML(in water) 2 GM in Premix Bag 1 BAG IVPB SCH (08:00)
[2022-06-24] MEDS ORDERED: Potassium Chloride 20 MEQ TAB PO SCH (08:00)
[2022-06-24] MEDS: Carvedilol 25 MG TAB PO SCH (08:31)
[2022-06-24] MEDS: Losartan 25 MG TAB PO SCH (08:31)
[2022-06-24] MEDS: Pantoprazole 40 MG VIAL IVP SCH (08:31)
[2022-06-24] MEDS: Ferrous Sulfate 325 MG TAB PO SCH (08:31)
[2022-06-24] MEDS: Polyethylene Glycol 3350 17 GM Packet PO SCH (08:32)
[2022-06-24] MEDS: PHOS-NAK 1 PKT PACK PO SCH ×2 (08:32→12:28)
[2022-06-24] MEDS: Potassium Bicarbonate/Cit Ac 20 MEQ TAB PO SCH (08:32)
[2022-06-24] MEDS: Aspirin 81 mg Enteric Coated Tablet PO SCH (08:32)
[2022-06-24] MEDS ORDERED: Magnevist 469MG/ML 20 ML VIAL ONE (11:25)
[2022-06-24] MEDS: Ondansetron ODT 4 MG TAB PO PRN (12:28)
[2022-06-24] MEDS ORDERED: Ondansetron PF 4 MG/2 ML Vial IVP PRN (12:56)
[2022-06-24 17:01] VITALS: TEMP 97.9
[2022-06-24 17:48] VITALS: BP 145/93
[2022-06-25] MEDS ORDERED: Hydrocortisone Sod Succ/PF 100 mg/2 ml Vial IVP SCH (14:00)
== END 2022-06-24 18:11 | disposition short-term general hospital (02) | DRG 871 ==
LOC: CSHERS 18:55 → CSHTELE 23:28
PROVIDERS: ADMIT Family Medicine; ATTEND Internal Medicine
PROC: 3E03329 Introduction of Other Anti-infective into Peripheral Vein, Percutaneous Approach (ICD-10-PCS; 2022-06-18)
PROC: 02PYX3Z Removal of Infusion Device from Great Vessel, External Approach (ICD-10-PCS; 2022-06-21)
PROC: 30233N1 Transfusion of Nonautologous Red Blood Cells into Peripheral Vein, Percutaneous Approach (ICD-10-PCS; principal; 2022-06-22)
DX: A41.81 Sepsis due to Enterococcus (principal); E43 Unspecified severe protein-calorie malnutrition; G93.41 Metabolic encephalopathy; G06.2 Extradural and subdural abscess, unspecified; I51.81 Takotsubo syndrome; N39.0 Urinary tract infection, site not specified; G72.81 Critical illness myopathy; G95.20 Unspecified cord compression; K92.1 Melena; Z68.1 Body mass index [BMI] 19.9 or less, adult; I10 Essential (primary) hypertension; M81.0 Age-related osteoporosis without current pathological fracture; Z96.653 Presence of artificial knee joint, bilateral; I48.91 Unspecified atrial fibrillation; E87.6 Hypokalemia; Z20.822 Contact with and (suspected) exposure to COVID-19; G89.29 Other chronic pain; D63.8 Anemia in other chronic diseases classified elsewhere; K59.03 Drug induced constipation; L89.152 Pressure ulcer of sacral region, stage 2; T40.2X5A Adverse effect of other opioids, initial encounter; Z98.890 Other specified postprocedural states; Z88.1 Allergy status to other antibiotic agents; Z79.899 Other long term (current) drug therapy; Z79.82 Long term (current) use of aspirin; Z88.5 Allergy status to narcotic agent
CPT/HCPCS: 36415; 36416; 36430; 70460; 71045; 72157; 74018; 74177; 80048; 80053; 80061; 80202; 81003; 81015; 82274; 82553; 82728; 83540; 83550; 83605; 83690; 83735; 83880; 84100; 84134; 84484; 85025; 85610; 85730; 86850; 86900; 86901; 87040; 87071; 87077; 87086; 87149; 87186; 87324; 87449; 93005; 93010; 96365; 96375; 97139; A9579; C9113; J0290; J0360; J0692; J1650; J1720; J1815; J2405; J3370; J3411; J3475; J3480; J3490; J7042; J7050; J7120; P9016; Q0162; Q9967

== ENCOUNTER 2022-10-27 08:24 | Outpatient (CLI) | payer MEDICARE | END 2022-10-27 08:25 | disposition home or self-care (01) | LOC: CSHWCC 08:24 | PROVIDERS: ATTEND Nurse Practitioner Family | DX: L89.154 Pressure ulcer of sacral region, stage 4 (principal) | CPT/HCPCS: 11042; 97607 ==

== ENCOUNTER 2022-11-10 08:00 | Outpatient (CLI) | payer MEDICARE | END 2022-11-10 08:01 | disposition home or self-care (01) | LOC: CSHWCC 08:00 | PROVIDERS: ATTEND Nurse Practitioner Family | DX: L89.154 Pressure ulcer of sacral region, stage 4 (principal) | CPT/HCPCS: 11043; 97607 ==

== ENCOUNTER 2022-11-24 08:32 | Outpatient (CLI) | payer MEDICARE | END 2022-11-24 08:33 | disposition home or self-care (01) | LOC: CSHWCC 08:32 | PROVIDERS: ATTEND Nurse Practitioner Family | DX: L89.154 Pressure ulcer of sacral region, stage 4 (principal) | CPT/HCPCS: 97597 ==

== ENCOUNTER 2022-12-03 08:37 | Outpatient (CLI) | payer MEDICARE | END 2022-12-03 08:38 | disposition home or self-care (01) | LOC: CSHWCC 08:37 | PROVIDERS: ATTEND Nurse Practitioner Family | DX: L89.154 Pressure ulcer of sacral region, stage 4 (principal) | CPT/HCPCS: 97597; 97598 ==

== ENCOUNTER 2022-12-17 08:36 | Outpatient (CLI) | payer MEDICARE | END 2022-12-17 08:37 | disposition home or self-care (01) | LOC: CSHWCC 08:36 | PROVIDERS: ATTEND Nurse Practitioner Family | DX: L89.154 Pressure ulcer of sacral region, stage 4 (principal) | CPT/HCPCS: 97597; 97598 ==

== ENCOUNTER 2022-12-24 12:16 | Emergency (ER) | payer MEDICARE ==
[2022-12-24 13:57] LABS: Hematocrit 31.4 % (34.9-44.5); Hemoglobin 9.5 g/dL (12.0-15.5); Mean Corpuscular HGB CONC 30.3 g/dL (32.0-36.0); Mean Corpuscular Volume 82.6 fl (81.6-98.3); Mean Platelet Volume 9.6 fl (7.4-10.4); Platelet Count 289 10x3/uL (150-450); RBC Distribution Width 24.8 % (11.5-14.5); White Blood Cell (WBC) Count 7.5 10x3/uL (3.5-10.5)
[2022-12-24 13:58] LABS: MDiff Complete? YES
[2022-12-24] MEDS ORDERED: Acetaminophen 500 MG TAB ONE (13:59)
[2022-12-24] MEDS ORDERED: cefTRIAXone (ROCEPHIN) 1 GM VIAL ONE (14:00)
[2022-12-24] MEDS ORDERED: LevoFLOXacin 750 mg/D5W 150 ml Premix Bag ONE (14:00)
[2022-12-24 14:04] LABS: ALT (SGPT) 12 U/L (8-55); AST (SGOT) 16 U/L (5-34); Albumin 3.1 g/dL (3.4-4.8); Alkaline Phosphatase 119 U/L (40-110); Anion Gap 16 mmol/L (10-20); BUN (Urea Nitrogen) 29 mg/dL (9.8-20.1); Bilirubin, Total 0.3 mg/dL (0.2-1.2); Calc. Creatinine Clearance 0 mL/min (70-130); Calcium 8.3 mg/dL (7.8-10.44); Carbon Dioxide 23 mmol/L (23-31); Chloride 100 mmol/L (98-107); Estimated GFR 88; Glucose 130 mg/dL (80-115); Potassium 3.9 mmol/L (3.5-5.1); Protein, Total 6.1 g/dL (5.8-8.1); Sodium 135 mmol/L (136-145)
[2022-12-24 15:02] LABS: Band 10 % (5-11); Lymphocytes 7 % (21-51); Monocytes 6 % (0-10); Neutrophil 76 % (42-75)
[2022-12-24 15:05] LABS: Anisocytosis MODERATE=16-30 cells (100X) (0-5/hpf); Hypochromia SLIGHT = 6-15 cells (100X) (0-5/hpf)
[2022-12-24 15:06] LABS: Platelet Adequacy Comment Appears Adequate
[2022-12-24 16:59] LABS: Bilirubin Neg (Negative); Blood, Urine 150 (Negative); Clarity Cloudy (Clear); Glucose, Urine (Dipstick) Normal (Negative); Ketone, Urine Negative (Negative); Leukocyte 500 (Negative); Nitrite Negative (Negative); Protein, Urine (Dipstick) 100 mg/dl (Neg-Trace); Urobilinogen Normal mg/dL (Less than 2)
[2022-12-24 17:17] LABS: CAUTI Indications for Culture Fever or rigors; RBC/HPF 21-50 HPF (0-3); WBC/HPF Greater Than 50 HPF (0-3)
[2022-12-24 17:18] LABS: Squamous Epithelial None Seen HPF (0-3)
[2022-12-24 17:19] LABS: Bacteria/HPF 2+ HPF (None Seen)
[2022-12-24 17:21] LABS: Urine Culture Reflex Yes Yes
== END 2022-12-24 17:00 | disposition home or self-care (01) ==
LOC: CSHERS 12:16
DX: N10 Acute pyelonephritis (principal); A41.9 Sepsis, unspecified organism; I10 Essential (primary) hypertension
CPT/HCPCS: 36415; 71045; 80053; 81001; 83605; 85025; 87040; 87077; 87086; 87149; 87186; 96365; 96366; 96367; J0696; J1956

== ENCOUNTER 2022-12-25 18:59 | Inpatient (IN) | payer MEDICARE ==
[2022-12-25 20:35] LABS: Hematocrit 28.7 % (34.9-44.5); Hemoglobin 8.9 g/dL (12.0-15.5); Mean Corpuscular Hemoglobin 25.3 pg (27.0-33.0); Mean Corpuscular Volume 81.5 fl (81.6-98.3); Mean Platelet Volume 9.4 fl (7.4-10.4); Platelet Count 265 10x3/uL (150-450); Red Blood Cell (RBC) Count 3.52 10x6/uL (3.90-5.03); White Blood Cell (WBC) Count 8.1 10x3/uL (3.5-10.5)
[2022-12-25 20:47] LABS: ALT (SGPT) 9 U/L (8-55); AST (SGOT) 14 U/L (5-34); Albumin 2.9 g/dL (3.4-4.8); Alkaline Phosphatase 110 U/L (40-110); Anion Gap 16 mmol/L (10-20); BUN (Urea Nitrogen) 24 mg/dL (9.8-20.1); Bilirubin, Total 0.3 mg/dL (0.2-1.2); Calc. Creatinine Clearance 0 mL/min (70-130); Calcium 8.9 mg/dL (7.8-10.44); Carbon Dioxide 23 mmol/L (23-31); Chloride 102 mmol/L (98-107); Estimated GFR 96; Globulin 3.4 g/dL (2.4-3.5); Glucose 109 mg/dL (80-115); Potassium 3.5 mmol/L (3.5-5.1); Protein, Total 6.3 g/dL (5.8-8.1); Sodium 137 mmol/L (136-145)
[2022-12-25 20:55] LABS: MDiff Complete? YES
[2022-12-25 20:57] LABS: Anisocytosis MODERATE=16-30 cells (100X) (0-5/hpf); Lymphocytes 6 % (21-51); Monocytes 10 % (0-10); Neutrophil 84 % (42-75)
[2022-12-25 20:58] LABS: Hypochromia SLIGHT = 6-15 cells (100X) (0-5/hpf); Platelet Adequacy Comment Appears Adequate; Platelet Clumps SLIGHT; Poikilocytosis SLIGHT = 6-15 cells (100X) (0-5/hpf)
[2022-12-25] MEDS ORDERED: Piperacillin/Tazobactam 3.375 GM VIAL ONE (21:07)
[2022-12-25] MEDS ORDERED: Vancomycin 1 GM VIAL ONE (21:07)
[2022-12-25] MEDS ORDERED: Morphine 2 MG/ML VIAL ONE (23:03)
[2022-12-25] MEDS ORDERED: Ketorolac Tromethamine 30 MG/ML VIAL ONE (23:03)
[2022-12-26 00:36] LABS: Bilirubin Neg (Negative); Blood, Urine 250 (Negative); Clarity Cloudy (Clear); Glucose, Urine (Dipstick) Normal (Negative); Ketone, Urine 5 mg/dL (Negative); Leukocyte 500 (Negative); Nitrite Positive (Negative); Protein, Urine (Dipstick) 100 mg/dl (Neg-Trace); Urobilinogen Normal mg/dL (Less than 2); pH, Urine 6.5 (5.0-9.0)
[2022-12-26 00:52] LABS: Bacteria/HPF 1+ HPF (None Seen); CAUTI Indications for Culture Fever or rigors; RBC/HPF 0-3 HPF (0-3); WBC/HPF Greater Than 50 HPF (0-3)
[2022-12-26 00:53] LABS: Urine Culture Reflex Yes Yes
[2022-12-26] MEDS ORDERED: Piperacillin/Tazobactam 3.375 GM in Sodium Chloride 0.9% 100 ML IVPB SCH (02:00)
[2022-12-26] MEDS ORDERED: HYDROcodone/Acetaminophen 5/325 mg Tablet PO SCH (02:30)
[2022-12-26] MEDS ORDERED: HYDROcodone/Acetaminophen 5/325 mg Tablet PO PRN (04:27)
[2022-12-26] MEDS ORDERED: Senokot S 8.6-50 MG TAB PO PRN (04:27)
[2022-12-26] MEDS ORDERED: fentaNYL 50 mcg/hour Patch TD SCH (05:00)
[2022-12-26] MEDS: clonazePAM 0.5 MG TAB PO SCH ×2 (06:25→18:32)
[2022-12-26] MEDS: HYDROcodone/Acetaminophen 5/325 mg Tablet PO PRN ×2 (06:29→10:48)
[2022-12-26] MEDS ORDERED: Vancomycin HCl 500 MG in Sodium Chloride 0.9% 100 ML IVPB SCH (09:00)
[2022-12-26] MEDS: Polyethylene Glycol 3350 17 GM Packet PO SCH (09:40)
[2022-12-26] MEDS: Loratadine 10 MG TAB PO SCH (09:42)
[2022-12-26] MEDS: Thiamine 100 MG TAB PO SCH (09:42)
[2022-12-26] MEDS: Vancomycin HCl 750 MG in Sodium Chloride 0.9% 250 ML 250 ML IVPB SCH ×2 (09:44→20:33)
[2022-12-26] MEDS: Piperacillin/Tazobactam 3.375 GM in Sodium Chloride 0.9% 100 ML IVPB SCH ×3 (11:04→22:50)
[2022-12-26] MEDS: HYDROcodone/Acetaminophen 5/325 mg Tablet PO SCH ×3 (15:03→22:53)
[2022-12-26] MEDS ORDERED: diphenhydrAMINE 25 MG CAP PO SCH (20:30)
[2022-12-27] MEDS: HYDROcodone/Acetaminophen 5/325 mg Tablet PO SCH ×5 (04:16→20:15)
[2022-12-27 05:31] LABS: #Basophils 0.1 10x3/uL (0.0-0.2); #Eosinphils 0.6 10x3/uL (0.0-0.5); #Monocytes 0.7 10x3/uL (0.0-1.1); #Neutrophils 6.2 10x3/uL (1.5-8.4); %Basophils 0.7 % (0.0-2.0); %Lymphocytes 6.4 % (18.0-47.0); %Monocytes 8.6 % (0.0-10.0); %Neutrophils 76.7 % (40.0-75.0); Hemoglobin 8.7 g/dL (12.0-15.5); Mean Corpuscular Hemoglobin 25.3 pg (27.0-33.0); Mean Corpuscular Volume 84.3 fl (81.6-98.3); Mean Platelet Volume 9.5 fl (7.4-10.4); Platelet Count 269 10x3/uL (150-450); RBC Distribution Width 25.4 % (11.5-14.5); Red Blood Cell (RBC) Count 3.44 10x6/uL (3.90-5.03); White Blood Cell (WBC) Count 8.1 10x3/uL (3.5-10.5)
[2022-12-27 05:44] LABS: Anion Gap 15 mmol/L (10-20); BUN (Urea Nitrogen) 18 mg/dL (9.8-20.1); Calc. Creatinine Clearance 48 mL/min (70-130); Calcium 8.6 mg/dL (7.8-10.44); Carbon Dioxide 19 mmol/L (23-31); Chloride 110 mmol/L (98-107); Estimated GFR 96; Glucose 85 mg/dL (80-115); Magnesium 1.8 mg/dL (1.6-2.6); Potassium 3.4 mmol/L (3.5-5.1); Sodium 141 mmol/L (136-145)
[2022-12-27] MEDS: Piperacillin/Tazobactam 3.375 GM in Sodium Chloride 0.9% 100 ML IVPB SCH (05:44)
[2022-12-27] MEDS: clonazePAM 0.5 MG TAB PO SCH ×2 (06:38→18:21)
[2022-12-27] MEDS: Loratadine 10 MG TAB PO SCH (06:42)
[2022-12-27] MEDS ORDERED: Iopamidol 30 ML ONE (07:07)
[2022-12-27] MEDS ORDERED: Lidocaine 2% PF 5 ML VIAL ONE (07:36)
[2022-12-27] MEDS ORDERED: PROPOFOL 20 ML ONE (07:36)
[2022-12-27] MEDS ORDERED: PHENYLEPHRINE-NS 100 MCG/ML 10 ML SYRINGE ONE (08:09)
[2022-12-27] MEDS ORDERED: Ondansetron PF 4 MG/2 ML Vial ONE (08:14)
[2022-12-27] MEDS: Vancomycin HCl 750 MG in Sodium Chloride 0.9% 250 ML 250 ML IVPB SCH ×2 (09:00→12:06)
[2022-12-27] MEDS ORDERED: fentaNYL 50 mcg/hour Patch TD SCH (09:00)
[2022-12-27] MEDS: Thiamine 100 MG TAB PO SCH (12:03)
[2022-12-27] MEDS: Polyethylene Glycol 3350 17 GM Packet PO SCH (12:04)
[2022-12-27] MEDS ORDERED: Magnevist 469MG/ML 20 ML VIAL ONE (12:23)
[2022-12-27] MEDS: Ketorolac Tromethamine 30 MG/ML VIAL IVP SCH (12:29)
[2022-12-27] MEDS ORDERED: GENTAMICIN IVPB SCH (14:00)
[2022-12-27] MEDS ORDERED: SODIUM CHLORIDE 0.9% IVPB SCH (14:00)
[2022-12-27] MEDS: GENTAMICIN SULFATE IVPB SCH (15:55)
[2022-12-27] MEDS: ADMIXTURE FEE IVPB SCH (15:55)
[2022-12-27] MEDS: SODIUM CHLORIDE IVPB SCH (15:55)
[2022-12-27] MEDS: Magnesium 2 GM/50 ML(in water) 2 GM in Premix Bag 1 BAG IVPB SCH ×2 (15:58→20:02)
[2022-12-27] MEDS ORDERED: Lactated Ringer's 1,000 ML IV SCH (17:45)
[2022-12-27] MEDS: fentaNYL 50 mcg/hour Patch TD SCH (18:17)
[2022-12-27] MEDS: Potassium Chloride 20 MEQ in Premix Bag 1 BAG IVPB SCH ×2 (18:35→21:14)
[2022-12-27] MEDS: Acetaminophen 325 MG TAB PO PRN (18:42)
[2022-12-27] MEDS: Lactated Ringer's 1,000 ML IV SCH (19:32)
[2022-12-27 23:26] LABS: Vancomycin, Trough 22.3 ug/mL
[2022-12-28] MEDS: HYDROcodone/Acetaminophen 5/325 mg Tablet PO SCH ×7 (00:37→23:00)
[2022-12-28] MEDS: Vancomycin HCl 750 MG in Sodium Chloride 0.9% 250 ML 250 ML IVPB SCH (00:38)
[2022-12-28] MEDS: SODIUM CHLORIDE IVPB SCH ×2 (02:52→14:22)
[2022-12-28] MEDS: GENTAMICIN SULFATE IVPB SCH ×2 (02:52→14:22)
[2022-12-28] MEDS: ADMIXTURE FEE IVPB SCH ×2 (02:52→14:22)
[2022-12-28] MEDS: Lactated Ringer's 1,000 ML IV SCH ×2 (04:13→14:20)
[2022-12-28 04:40] LABS: Actual Bicarbonate (HCO3v) 18.7 mEq/L (22-28); Calcium, Ionized (venous) 1.08 mmol/L (1.16-1.32); Chloride (VBG) 111 mmol/L (98-106); Hematocrit-VBG 22 % (36.0-47.0); Hemoglobin (Hb) 7.4 g/dL (11.7-16.1); Potassium (VBG) 3.73 mmol/L (3.70-5.30); Puncture Site Other Site; Sodium 135.5 mmol/L (133-146); pH (venous) 7.426 (7.32-7.43)
[2022-12-28 04:47] LABS: Hematocrit 22.5 % (34.9-44.5); Hemoglobin 6.8 g/dL (12.0-15.5); Mean Corpuscular HGB CONC 30.2 g/dL (32.0-36.0); Mean Corpuscular Volume 82.7 fl (81.6-98.3); Platelet Count 209 10x3/uL (150-450); RBC Distribution Width 25.5 % (11.5-14.5); Red Blood Cell (RBC) Count 2.72 10x6/uL (3.90-5.03); White Blood Cell (WBC) Count 8.5 10x3/uL (3.5-10.5)
[2022-12-28 04:59] LABS: ALT (SGPT) 7 U/L (8-55); AST (SGOT) 17 U/L (5-34); Alkaline Phosphatase 106 U/L (40-110); Anion Gap 13 mmol/L (10-20); BUN (Urea Nitrogen) 16 mg/dL (9.8-20.1); Bilirubin, Total 0.2 mg/dL (0.2-1.2); Calc. Creatinine Clearance 46 mL/min (70-130); Calcium 7.4 mg/dL (7.8-10.44); Carbon Dioxide 16 mmol/L (23-31); Chloride 112 mmol/L (98-107); Estimated GFR 91; Globulin 2.5 g/dL (2.4-3.5); Glucose 135 mg/dL (80-115); Magnesium 2.8 mg/dL (1.6-2.6); Potassium 3.7 mmol/L (3.5-5.1); Protein, Total 4.5 g/dL (5.8-8.1); Sodium 137 mmol/L (136-145)
[2022-12-28 05:35] LABS: MDiff Complete? YES
[2022-12-28] MEDS: clonazePAM 0.5 MG TAB PO SCH ×2 (05:48→17:38)
[2022-12-28 06:02] LABS: Band 14 % (5-11); Lymphocytes 2 % (21-51); Monocytes 3 % (0-10); Neutrophil 81 % (42-75)
[2022-12-28 06:04] LABS: Hypochromia MODERATE=16-30 cells (100X) (0-5/hpf); Microcytosis SLIGHT = 6-15 cells (100X) (0-5/hpf); Platelet Adequacy Comment Appears Adequate
[2022-12-28] MEDS: Loratadine 10 MG TAB PO SCH (09:02)
[2022-12-28] MEDS: Thiamine 100 MG TAB PO SCH (09:02)
[2022-12-28] MEDS: Polyethylene Glycol 3350 17 GM Packet PO SCH (09:03)
[2022-12-28 10:40] LABS: Hematocrit 23.6 % (34.9-44.5)
[2022-12-28] MEDS: Ketorolac Tromethamine 30 MG/ML VIAL IVP SCH (13:15)
[2022-12-28] MEDS: Acetaminophen 325 MG TAB PO PRN (16:34)
[2022-12-28 17:20] LABS: SARS-CoV-2 NAA Rapid Test Not Detected (NotDetected)
[2022-12-28] MEDS: Vancomycin HCl 500 MG in Sodium Chloride 0.9% 100 ML IVPB SCH (17:42)
[2022-12-28] MEDS ORDERED: Loperamide HCl 2 MG CAP PO SCH (20:00)
[2022-12-29] MEDS ORDERED: Nitroglycerin 2% Ointment 1 INCH/1 GM Packet TOP SCH (01:20)
[2022-12-29] MEDS ORDERED: Furosemide 40 MG/4 ML VIAL SLOW IVP SCH (01:20)
[2022-12-29] MEDS ORDERED: Furosemide 40 MG/4 ML VIAL ONE (01:22)
[2022-12-29] MEDS ORDERED: Nitroglycerin 2% Ointment 1 INCH/1 GM Packet ONE (01:23)
[2022-12-29] MEDS ORDERED: dilTIAZem 25 MG/5 ML VIAL ONE ×2 (02:04→02:22)
[2022-12-29] MEDS ORDERED: dilTIAZem 25 MG/5 ML VIAL SLOW IVP SCH ×2 (02:15→02:30)
[2022-12-29] MEDS: GENTAMICIN SULFATE IVPB SCH (03:21)
[2022-12-29] MEDS: SODIUM CHLORIDE IVPB SCH (03:21)
[2022-12-29] MEDS: ADMIXTURE FEE IVPB SCH (03:21)
[2022-12-29 03:25] LABS: Hematocrit 36.7 % (34.9-44.5); Hemoglobin 11.2 g/dL (12.0-15.5); Mean Corpuscular HGB CONC 30.5 g/dL (32.0-36.0); Mean Corpuscular Hemoglobin 25.1 pg (27.0-33.0); Mean Corpuscular Volume 82.1 fl (81.6-98.3); Mean Platelet Volume 9.2 fl (7.4-10.4); Platelet Count 252 10x3/uL (150-450); RBC Distribution Width 24.5 % (11.5-14.5); Red Blood Cell (RBC) Count 4.47 10x6/uL (3.90-5.03)
[2022-12-29 03:29] LABS: Actual Bicarbonate (HCO3v) 15.1 mEq/L (22-28); Base Excess -8.9 mEq/L (-2 - +2); Chloride (VBG) 112 mmol/L (98-106); Critical Notified By: CP.PH; Hematocrit-VBG 34 % (36.0-47.0); Hemoglobin (Hb) 11.6 g/dL (11.7-16.1); Potassium (VBG) 3.72 mmol/L (3.70-5.30); Puncture Site Other Site; Sodium 138.4 mmol/L (133-146); pH (venous) 7.363 (7.32-7.43)
[2022-12-29 03:40] LABS: MDiff Complete? YES
[2022-12-29] MEDS ORDERED: Acetaminophen 650 MG Suppository PR PRN (03:43)
[2022-12-29] MEDS ORDERED: Metoprolol Tartrate 5 MG/5 ML VIAL IVP SCH (03:45)
[2022-12-29 03:55] LABS: ALT (SGPT) 16 U/L (8-55); AST (SGOT) 49 U/L (5-34); Albumin 2.6 g/dL (3.4-4.8); Alkaline Phosphatase 134 U/L (40-110); Anion Gap 19 mmol/L (10-20); BUN (Urea Nitrogen) 21 mg/dL (9.8-20.1); Bilirubin, Total 0.4 mg/dL (0.2-1.2); Calc. Creatinine Clearance 49 mL/min (70-130); Calcium 8.3 mg/dL (7.8-10.44); Carbon Dioxide 16 mmol/L (23-31); Chloride 112 mmol/L (98-107); Estimated GFR 96; Globulin 3.4 g/dL (2.4-3.5); Glucose 99 mg/dL (80-115); Magnesium 2.2 mg/dL (1.6-2.6); Potassium 3.6 mmol/L (3.5-5.1); Sodium 143 mmol/L (136-145)
[2022-12-29 04:05] LABS: Band 39 % (5-11); Eosinophils 1 % (0-10); Lymphocytes 3 % (21-51); Monocytes 3 % (0-10); Neutrophil 54 % (42-75)
[2022-12-29 04:07] LABS: Anisocytosis SLIGHT = 6-15 cells (100X) (0-5/hpf); Macrocytosis SLIGHT = 6-15 cells (100X) (0-5/hpf); Microcytosis SLIGHT = 6-15 cells (100X) (0-5/hpf)
[2022-12-29 04:08] LABS: Platelet Adequacy Comment Appears Adequate
[2022-12-29] MEDS: Vancomycin HCl 500 MG in Sodium Chloride 0.9% 100 ML IVPB SCH ×2 (05:02→17:55)
[2022-12-29] MEDS: clonazePAM 0.5 MG TAB PO SCH ×2 (05:02→17:55)
[2022-12-29] MEDS: Lactated Ringer's 1,000 ML IV SCH (05:03)
[2022-12-29] MEDS ORDERED: Lactated Ringer's 500 ML IV SCH (05:30)
[2022-12-29] MEDS ORDERED: NOREPINEPHRINE 8 MG/250 ML-D5W 250 ML IVPB SCH (07:00)
[2022-12-29] MEDS ORDERED: Lactated Ringer's 1,000 ML IV SCH (07:00)
[2022-12-29] MEDS: HYDROcodone/Acetaminophen 5/325 mg Tablet PO SCH ×5 (08:14→23:52)
[2022-12-29] MEDS: Polyethylene Glycol 3350 17 GM Packet PO SCH (08:15)
[2022-12-29] MEDS: Loratadine 10 MG TAB PO SCH (08:59)
[2022-12-29] MEDS: Pantoprazole 40 MG VIAL IVP SCH (08:59)
[2022-12-29] MEDS: Thiamine 100 MG TAB PO SCH (08:59)
[2022-12-29 09:28] LABS: Actual Bicarbonate (HCO3v) 20.1 mEq/L (22-28); Calcium, Ionized (venous) 1.09 mmol/L (1.16-1.32); Chloride (VBG) 110 mmol/L (98-106); Hematocrit-VBG 29 % (36.0-47.0); Hemoglobin (Hb) 9.8 g/dL (11.7-16.1); Potassium (VBG) 3.37 mmol/L (3.70-5.30); Puncture Site Other Site; RapidComm Collect By CBN; Sodium 138.5 mmol/L (133-146); pH (venous) 7.402 (7.32-7.43)
[2022-12-29] MEDS ORDERED: Vancomycin HCl 500 MG VIAL ONE (17:57)
[2022-12-29] MEDS: Acetaminophen 325 MG TAB PO PRN (22:02)
[2022-12-30] MEDS: HYDROcodone/Acetaminophen 5/325 mg Tablet PO SCH ×6 (03:28→23:09)
[2022-12-30 03:50] LABS: Hematocrit 29.5 % (34.9-44.5); Mean Corpuscular HGB CONC 30.5 g/dL (32.0-36.0); Mean Corpuscular Hemoglobin 25.4 pg (27.0-33.0); Mean Corpuscular Volume 83.3 fl (81.6-98.3); Mean Platelet Volume 10.3 fl (7.4-10.4); Platelet Count 212 10x3/uL (150-450); RBC Distribution Width 24.5 % (11.5-14.5); Red Blood Cell (RBC) Count 3.54 10x6/uL (3.90-5.03); White Blood Cell (WBC) Count 6.9 10x3/uL (3.5-10.5)
[2022-12-30 04:10] LABS: ALT (SGPT) 13 U/L (8-55); AST (SGOT) 27 U/L (5-34); Albumin 2.1 g/dL (3.4-4.8); Alkaline Phosphatase 113 U/L (40-110); Anion Gap 17 mmol/L (10-20); BUN (Urea Nitrogen) 25 mg/dL (9.8-20.1); Bilirubin, Total 0.2 mg/dL (0.2-1.2); Calc. Creatinine Clearance 54 mL/min (70-130); Calcium 8.1 mg/dL (7.8-10.44); Carbon Dioxide 17 mmol/L (23-31); Chloride 112 mmol/L (98-107); Estimated GFR 98; Globulin 2.9 g/dL (2.4-3.5); Glucose 80 mg/dL (80-115); Magnesium 1.8 mg/dL (1.6-2.6); Potassium 3.6 mmol/L (3.5-5.1); Sodium 142 mmol/L (136-145)
[2022-12-30 04:15] LABS: Troponin I 0.139 ng/mL (< 0.028)
[2022-12-30 04:49] LABS: MDiff Complete? YES
[2022-12-30] MEDS: Vancomycin HCl 500 MG in Sodium Chloride 0.9% 100 ML IVPB SCH (06:01)
[2022-12-30] MEDS: clonazePAM 0.5 MG TAB PO SCH ×2 (06:02→19:24)
[2022-12-30 06:27] LABS: Band 25 % (5-11); Eosinophils 4 % (0-10); Lymphocytes 16 % (21-51); Monocytes 4 % (0-10); Neutrophil 51 % (42-75)
[2022-12-30 06:28] LABS: Anisocytosis SLIGHT = 6-15 cells (100X) (0-5/hpf); Hypochromia SLIGHT = 6-15 cells (100X) (0-5/hpf); Macrocytosis SLIGHT = 6-15 cells (100X) (0-5/hpf); Microcytosis SLIGHT = 6-15 cells (100X) (0-5/hpf)
[2022-12-30 06:29] LABS: Platelet Adequacy Comment Appears Adequate
[2022-12-30 07:03] LABS: Vancomycin, Trough 22.9 ug/mL
[2022-12-30] MEDS: Polyethylene Glycol 3350 17 GM Packet PO SCH (08:08)
[2022-12-30] MEDS: Thiamine 100 MG TAB PO SCH (08:08)
[2022-12-30] MEDS: Loratadine 10 MG TAB PO SCH (08:08)
[2022-12-30] MEDS: Pantoprazole 40 MG VIAL IVP SCH (08:08)
[2022-12-30] MEDS: fentaNYL 50 mcg/hour Patch TD SCH (19:24)
[2022-12-30] MEDS ORDERED: Magnesium 2 GM/50 ML(in water) 2 GM in Premix Bag 1 BAG IVPB SCH (20:00)
[2022-12-30] MEDS ORDERED: Metoprolol Tartrate 5 MG/5 ML VIAL IVP SCH (20:00)
[2022-12-30 20:43] LABS: #Eosinphils 0.5 10x3/uL (0.0-0.5); #Monocytes 0.3 10x3/uL (0.0-1.1); #Neutrophils 4.4 10x3/uL (1.5-8.4); %Basophils 0.7 % (0.0-2.0); %Eosinophils 7.6 % (0.0-6.0); %Lymphocytes 14.1 % (18.0-47.0); %Monocytes 4.4 % (0.0-10.0); %Neutrophils 71.9 % (40.0-75.0); Hemoglobin 10.1 g/dL (12.0-15.5); Mean Corpuscular HGB CONC 29.7 g/dL (32.0-36.0); Mean Corpuscular Hemoglobin 25.1 pg (27.0-33.0); Mean Corpuscular Volume 84.6 fl (81.6-98.3); Mean Platelet Volume 9.5 fl (7.4-10.4); Platelet Count 238 10x3/uL (150-450); RBC Distribution Width 24.9 % (11.5-14.5); Red Blood Cell (RBC) Count 4.02 10x6/uL (3.90-5.03); White Blood Cell (WBC) Count 6.1 10x3/uL (3.5-10.5)
[2022-12-30 20:51] LABS: ALT (SGPT) 14 U/L (8-55); AST (SGOT) 25 U/L (5-34); Albumin 2.3 g/dL (3.4-4.8); Alkaline Phosphatase 133 U/L (40-110); Anion Gap 14 mmol/L (10-20); BUN (Urea Nitrogen) 28 mg/dL (9.8-20.1); Bilirubin, Total 0.3 mg/dL (0.2-1.2); Calc. Creatinine Clearance 62 mL/min (70-130); Calcium 7.6 mg/dL (7.8-10.44); Carbon Dioxide 19 mmol/L (23-31); Chloride 114 mmol/L (98-107); Estimated GFR 97; Globulin 2.7 g/dL (2.4-3.5); Glucose 104 mg/dL (80-115); Magnesium 1.8 mg/dL (1.6-2.6); Phosphorus 4.2 mg/dL (2.3-4.7); Potassium 2.9 mmol/L (3.5-5.1); Sodium 144 mmol/L (136-145)
[2022-12-30 20:57] LABS: Troponin I 0.085 ng/mL (< 0.028)
[2022-12-30] MEDS: Acetaminophen 325 MG TAB PO PRN (21:24)
[2022-12-30 21:59] LABS: Anisocytosis SLIGHT = 6-15 cells (100X) (0-5/hpf); Macrocytosis SLIGHT = 6-15 cells (100X) (0-5/hpf); Microcytosis SLIGHT = 6-15 cells (100X) (0-5/hpf); Platelet Adequacy Comment Appears Adequate
[2022-12-30] MEDS ORDERED: Potassium Chloride 40 MEQ in Premix Bag 1 BAG IVPB SCH (22:30)
[2022-12-30] MEDS: Potassium Chloride 20 MEQ in Premix Bag 1 BAG IVPB SCH (22:30)
[2022-12-31] MEDS: Potassium Chloride 20 MEQ in Premix Bag 1 BAG IVPB SCH ×3 (00:43→04:28)
[2022-12-31 01:00] LABS: Magnesium 2.5 mg/dL (1.6-2.6)
[2022-12-31] MEDS: Acetaminophen 325 MG TAB PO PRN ×2 (01:31→06:18)
[2022-12-31 03:41] LABS: ALT (SGPT) 13 U/L (8-55); AST (SGOT) 22 U/L (5-34); Albumin 2.2 g/dL (3.4-4.8); Alkaline Phosphatase 118 U/L (40-110); Anion Gap 13 mmol/L (10-20); BUN (Urea Nitrogen) 29 mg/dL (9.8-20.1); Bilirubin, Total 0.3 mg/dL (0.2-1.2); Calc. Creatinine Clearance 70 mL/min (70-130); Calcium 7.8 mg/dL (7.8-10.44); Carbon Dioxide 20 mmol/L (23-31); Chloride 113 mmol/L (98-107); Estimated GFR 99; Globulin 2.8 g/dL (2.4-3.5); Glucose 83 mg/dL (80-115); Magnesium 2.4 mg/dL (1.6-2.6); Potassium 4.3 mmol/L (3.5-5.1); Sodium 142 mmol/L (136-145)
[2022-12-31] MEDS: HYDROcodone/Acetaminophen 5/325 mg Tablet PO SCH ×6 (03:48→23:10)
[2022-12-31 03:58] LABS: #Basophils 0.1 10x3/uL (0.0-0.2); #Eosinphils 0.5 10x3/uL (0.0-0.5); #Monocytes 0.3 10x3/uL (0.0-1.1); #Neutrophils 3.2 10x3/uL (1.5-8.4); %Basophils 1.2 % (0.0-2.0); %Eosinophils 9.7 % (0.0-6.0); %Lymphocytes 20.5 % (18.0-47.0); %Monocytes 5.8 % (0.0-10.0); %Neutrophils 61.4 % (40.0-75.0); Hematocrit 30.5 % (34.9-44.5); Hemoglobin 9.4 g/dL (12.0-15.5); Mean Corpuscular HGB CONC 30.8 g/dL (32.0-36.0); Mean Corpuscular Hemoglobin 25.1 pg (27.0-33.0); Mean Corpuscular Volume 81.6 fl (81.6-98.3); Mean Platelet Volume 9.6 fl (7.4-10.4); Platelet Count 221 10x3/uL (150-450); RBC Distribution Width 24.5 % (11.5-14.5); Red Blood Cell (RBC) Count 3.74 10x6/uL (3.90-5.03); White Blood Cell (WBC) Count 5.2 10x3/uL (3.5-10.5)
[2022-12-31] MEDS: Vancomycin HCl 500 MG in Sodium Chloride 0.9% 100 ML IVPB SCH (06:06)
[2022-12-31] MEDS: clonazePAM 0.5 MG TAB PO SCH ×2 (06:06→17:03)
[2022-12-31] MEDS: Pantoprazole 40 MG VIAL IVP SCH (07:54)
[2022-12-31] MEDS: Thiamine 100 MG TAB PO SCH (07:55)
[2022-12-31] MEDS: Loratadine 10 MG TAB PO SCH (07:55)
[2022-12-31] MEDS: Polyethylene Glycol 3350 17 GM Packet PO SCH (08:02)
[2022-12-31] MEDS ORDERED: Metoprolol Tartrate 5 MG/5 ML VIAL IVP SCH (20:15)
[2022-12-31 20:37] LABS: Anion Gap 13 mmol/L (10-20); BUN (Urea Nitrogen) 29 mg/dL (9.8-20.1); Calc. Creatinine Clearance 67 mL/min (70-130); Calcium 7.9 mg/dL (7.8-10.44); Carbon Dioxide 19 mmol/L (23-31); Chloride 115 mmol/L (98-107); Estimated GFR 98; Glucose 96 mg/dL (80-115); Phosphorus 3.9 mg/dL (2.3-4.7); Potassium 4.3 mmol/L (3.5-5.1); Sodium 143 mmol/L (136-145)
[2023-01-01] MEDS: Vancomycin HCl 500 MG in Sodium Chloride 0.9% 100 ML IVPB SCH (00:24)
[2023-01-01] MEDS ORDERED: Loratadine 10 MG TAB PO SCH (00:45)
[2023-01-01] MEDS: HYDROcodone/Acetaminophen 5/325 mg Tablet PO SCH ×6 (03:09→22:55)
[2023-01-01 03:11] LABS: Hematocrit 31.8 % (34.9-44.5); Hemoglobin 9.8 g/dL (12.0-15.5); Mean Corpuscular HGB CONC 30.8 g/dL (32.0-36.0); Mean Corpuscular Hemoglobin 24.9 pg (27.0-33.0); Mean Corpuscular Volume 80.7 fl (81.6-98.3); Mean Platelet Volume 9.8 fl (7.4-10.4); Platelet Count 249 10x3/uL (150-450); RBC Distribution Width 24.3 % (11.5-14.5); Red Blood Cell (RBC) Count 3.94 10x6/uL (3.90-5.03); White Blood Cell (WBC) Count 5.1 10x3/uL (3.5-10.5)
[2023-01-01 03:18] LABS: MDiff Complete? YES
[2023-01-01 03:45] LABS: ALT (SGPT) 12 U/L (8-55); AST (SGOT) 19 U/L (5-34); Albumin 2.2 g/dL (3.4-4.8); Alkaline Phosphatase 131 U/L (40-110); Anion Gap 13 mmol/L (10-20); BUN (Urea Nitrogen) 28 mg/dL (9.8-20.1); Bilirubin, Total 0.3 mg/dL (0.2-1.2); Calc. Creatinine Clearance 72 mL/min (70-130); Calcium 7.8 mg/dL (7.8-10.44); Carbon Dioxide 20 mmol/L (23-31); Chloride 111 mmol/L (98-107); Estimated GFR 99; Glucose 89 mg/dL (80-115); Magnesium 1.9 mg/dL (1.6-2.6); Potassium 4.1 mmol/L (3.5-5.1); Protein, Total 5.2 g/dL (5.8-8.1); Sodium 140 mmol/L (136-145)
[2023-01-01 04:45] LABS: Platelet Adequacy Comment Appears Adequate
[2023-01-01 04:46] LABS: Anisocytosis SLIGHT = 6-15 cells (100X) (0-5/hpf); Macrocytosis SLIGHT = 6-15 cells (100X) (0-5/hpf); Microcytosis SLIGHT = 6-15 cells (100X) (0-5/hpf)
[2023-01-01 04:49] LABS: Band 5 % (5-11); Eosinophils 8 % (0-10); Lymphocytes 24 % (21-51); Monocytes 9 % (0-10); Neutrophil 54 % (42-75)
[2023-01-01] MEDS: clonazePAM 0.5 MG TAB PO SCH ×2 (05:58→17:54)
[2023-01-01] MEDS ORDERED: Magnesium 2 GM/50 ML(in water) 2 GM in Premix Bag 1 BAG IVPB SCH (08:00)
[2023-01-01] MEDS: Thiamine 100 MG TAB PO SCH (08:58)
[2023-01-01] MEDS: Loratadine 10 MG TAB PO SCH (08:58)
[2023-01-01] MEDS: Carvedilol 6.25 MG TAB PO SCH ×2 (08:58→17:55)
[2023-01-01] MEDS: Polyethylene Glycol 3350 17 GM Packet PO SCH (08:59)
[2023-01-01] MEDS ORDERED: Sodium Bicarbonate 2.5 MEQ/5 ML VIAL ONE (11:26)
[2023-01-01] MEDS ORDERED: DAPTOmycin 500 MG in Sodium Chloride 0.9% 100 ML IVPB SCH ×2 (18:00→18:30)
[2023-01-01] MEDS ORDERED: hydrOXYzine 25 MG TAB PO PRN (20:18)
[2023-01-02] MEDS: HYDROcodone/Acetaminophen 5/325 mg Tablet PO SCH ×3 (03:00→11:06)
[2023-01-02 03:27] LABS: #Basophils 0.1 10x3/uL (0.0-0.2); #Eosinphils 0.4 10x3/uL (0.0-0.5); #Monocytes 0.5 10x3/uL (0.0-1.1); #Neutrophils 3.5 10x3/uL (1.5-8.4); %Basophils 0.9 % (0.0-2.0); %Eosinophils 7.2 % (0.0-6.0); %Lymphocytes 22.1 % (18.0-47.0); %Monocytes 8.7 % (0.0-10.0); %Neutrophils 59.7 % (40.0-75.0); Hematocrit 29.8 % (34.9-44.5); Mean Corpuscular HGB CONC 30.2 g/dL (32.0-36.0); Mean Corpuscular Volume 82.8 fl (81.6-98.3); Mean Platelet Volume 9.9 fl (7.4-10.4); Platelet Count 234 10x3/uL (150-450); RBC Distribution Width 24.3 % (11.5-14.5); White Blood Cell (WBC) Count 5.9 10x3/uL (3.5-10.5)
[2023-01-02 03:59] LABS: Platelet Adequacy Comment Appears Adequate
[2023-01-02 04:00] LABS: Anisocytosis SLIGHT = 6-15 cells (100X) (0-5/hpf); Macrocytosis SLIGHT = 6-15 cells (100X) (0-5/hpf); Microcytosis SLIGHT = 6-15 cells (100X) (0-5/hpf)
[2023-01-02 04:15] LABS: ALT (SGPT) 11 U/L (8-55); AST (SGOT) 17 U/L (5-34); Albumin 2.1 g/dL (3.4-4.8); Alkaline Phosphatase 126 U/L (40-110); Anion Gap 13 mmol/L (10-20); BUN (Urea Nitrogen) 23 mg/dL (9.8-20.1); Bilirubin, Total 0.3 mg/dL (0.2-1.2); CK (CPK) 11 U/L (29-168); Calc. Creatinine Clearance 74 mL/min (70-130); Calcium 7.8 mg/dL (7.8-10.44); Carbon Dioxide 22 mmol/L (23-31); Chloride 110 mmol/L (98-107); Estimated GFR 100; Globulin 2.8 g/dL (2.4-3.5); Glucose 86 mg/dL (80-115); Potassium 3.7 mmol/L (3.5-5.1); Protein, Total 4.9 g/dL (5.8-8.1); Sodium 141 mmol/L (136-145)
[2023-01-02] MEDS: clonazePAM 0.5 MG TAB PO SCH (06:45)
[2023-01-02] MEDS: Loratadine 10 MG TAB PO SCH (08:57)
[2023-01-02] MEDS: Thiamine 100 MG TAB PO SCH (08:57)
[2023-01-02] MEDS: Carvedilol 6.25 MG TAB PO SCH (08:57)
[2023-01-02] MEDS: Polyethylene Glycol 3350 17 GM Packet PO SCH (08:57)
[2023-01-02 09:14] VITALS: BMI 20.4
[2023-01-02] MEDS ORDERED: DAPTOmycin 500 MG in Sodium Chloride 0.9% 100 ML IVPB SCH (12:10)
[2023-01-02 13:45] VITALS: BP 105/63; TEMP 98.2
[2023-01-02] MEDS: Acetaminophen 325 MG TAB PO PRN (13:52)
[2023-01-02] MEDS: fentaNYL 50 mcg/hour Patch TD SCH (14:07)
[2023-01-05 10:13] LABS: CA Oxalate Dihydrate 100 % (.); Color Tan (.); Stone Weight 5 mg (.)
== END 2023-01-02 14:25 | disposition home or self-care (01) | DRG 853 ==
LOC: CSHERS 18:59 → CSHTELE 23:20 → CSHIMCU 12-29 01:58 → CSHTELE 12-31 21:22
PROVIDERS: ADMIT Family Medicine; ATTEND Hospitalist
PROC: 0TC68ZZ Extirpation of Matter from Right Ureter, Via Natural or Artificial Opening Endoscopic (ICD-10-PCS; principal; 2022-12-27)
PROC: 0T768DZ Dilation of Right Ureter with Intraluminal Device, Via Natural or Artificial Opening Endoscopic (ICD-10-PCS; 2022-12-27)
PROC: 02HV33Z Insertion of Infusion Device into Superior Vena Cava, Percutaneous Approach (ICD-10-PCS; 2023-01-01)
PROC: B5181ZA Fluoroscopy of Superior Vena Cava using Low Osmolar Contrast, Guidance (ICD-10-PCS; 2023-01-01)
DX: A41.02 Sepsis due to Methicillin resistant Staphylococcus aureus (principal); E43 Unspecified severe protein-calorie malnutrition; G93.41 Metabolic encephalopathy; L89.154 Pressure ulcer of sacral region, stage 4; J96.01 Acute respiratory failure with hypoxia; R65.21 Severe sepsis with septic shock; G82.20 Paraplegia, unspecified; I50.30 Unspecified diastolic (congestive) heart failure; I42.9 Cardiomyopathy, unspecified; N13.6 Pyonephrosis; G89.29 Other chronic pain; Z98.890 Other specified postprocedural states; Z88.5 Allergy status to narcotic agent; Z79.899 Other long term (current) drug therapy; Z74.01 Bed confinement status; D64.9 Anemia, unspecified; N31.9 Neuromuscular dysfunction of bladder, unspecified; F41.9 Anxiety disorder, unspecified; I11.0 Hypertensive heart disease with heart failure; M81.0 Age-related osteoporosis without current pathological fracture
CPT/HCPCS: 36415; 36416; 36430; 36569; 51600; 71045; 71260; 72157; 72158; 74177; 74430; 80048; 80053; 80202; 81001; 82274; 82365; 82550; 82805; 83605; 83735; 84100; 84484; 85025; 85652; 86140; 86850; 86870; 86900; 86901; 86905; 86922; 87040; 87077; 87086; 87186; 87324; 87449; 88300; 93005; 93010; 93306; 94640; 94660; 94760; 94762; 96374; 96375; 97139; A9579; C1751; C1769; C2617; C9113; J0878; J1580; J1650; J1885; J1940; J2001; J2272; J2405; J2543; J2704; J3370; J3475; J3480; J3490; J7050; J7120; P9016; Q9967

== ENCOUNTER 2023-01-07 08:36 | Outpatient (CLI) | payer MEDICARE | END 2023-01-07 08:37 | disposition home or self-care (01) | LOC: CSHWCC 08:36 | PROVIDERS: ATTEND Nurse Practitioner Family | DX: L89.154 Pressure ulcer of sacral region, stage 4 (principal) | CPT/HCPCS: 97602 ==

== ENCOUNTER 2023-01-29 08:26 | Outpatient (CLI) | payer MEDICARE | END 2023-01-29 08:27 | disposition home or self-care (01) | LOC: CSHWCC 08:26 | PROVIDERS: ATTEND Nurse Practitioner Family | DX: L89.154 Pressure ulcer of sacral region, stage 4 (principal) | CPT/HCPCS: 97602 ==

== ENCOUNTER 2023-02-19 08:40 | Outpatient (CLI) | payer MEDICARE | END 2023-02-19 08:41 | disposition home or self-care (01) | LOC: CSHWCC 08:40 | PROVIDERS: ATTEND Preventive Medicine Undersea and Hyperbaric Medicine | DX: L89.154 Pressure ulcer of sacral region, stage 4 (principal) | CPT/HCPCS: 97602 ==

== ENCOUNTER 2023-03-11 06:40 | Emergency (ER) | payer MEDICARE ==
[2023-03-11 08:17] LABS: #Basophils 0.1 10x3/uL (0.0-0.2); #Eosinphils 0.1 10x3/uL (0.0-0.5); #Monocytes 0.7 10x3/uL (0.0-1.1); #Neutrophils 13.2 10x3/uL (1.5-8.4); %Basophils 0.4 % (0.0-2.0); %Eosinophils 0.6 % (0.0-6.0); %Monocytes 4.7 % (0.0-10.0); %Neutrophils 88.7 % (40.0-75.0); Hematocrit 35.2 % (34.9-44.5); Hemoglobin 11.4 g/dL (12.0-15.5); Mean Corpuscular HGB CONC 32.4 g/dL (32.0-36.0); Mean Corpuscular Hemoglobin 29.5 pg (27.0-33.0); Mean Corpuscular Volume 91.2 fl (81.6-98.3); Mean Platelet Volume 9.2 fl (7.4-10.4); Platelet Count 313 10x3/uL (150-450); RBC Distribution Width 18.2 % (11.5-14.5); Red Blood Cell (RBC) Count 3.86 10x6/uL (3.90-5.03); White Blood Cell (WBC) Count 14.9 10x3/uL (3.5-10.5)
[2023-03-11 08:23] LABS: Bilirubin Neg (Negative); Blood, Urine 25 (Negative); Clarity Cloudy (Clear); Glucose, Urine (Dipstick) Normal (Negative); Ketone, Urine Negative (Negative); Leukocyte 500 (Negative); Nitrite Negative (Negative); Protein, Urine (Dipstick) 30 mg/dl (Neg-Trace); Specific Gravity, Urine 1.015 (1.005-1.030); Urobilinogen Normal mg/dL (Less than 2)
[2023-03-11 08:52] LABS: ALT (SGPT) 26 U/L (8-55); AST (SGOT) 51 U/L (5-34); Albumin 3.3 g/dL (3.4-4.8); Alkaline Phosphatase 119 U/L (40-110); Anion Gap 17 mmol/L (10-20); BUN (Urea Nitrogen) 16 mg/dL (9.8-20.1); Bilirubin, Total 0.4 mg/dL (0.2-1.2); Calc. Creatinine Clearance 0 mL/min (70-130); Carbon Dioxide 22 mmol/L (23-31); Chloride 105 mmol/L (98-107); Estimated GFR 96; Globulin 3.5 g/dL (2.4-3.5); Glucose 111 mg/dL (80-115); Potassium 3.7 mmol/L (3.5-5.1); Protein, Total 6.8 g/dL (5.8-8.1); Sodium 140 mmol/L (136-145)
[2023-03-11 08:53] LABS: RBC/HPF 0-3 HPF (0-3)
[2023-03-11 08:56] LABS: Bacteria/HPF 4+ HPF (None Seen); CAUTI Indications for Culture Dysuria,urgency,freq; Squamous Epithelial 0-3 HPF (0-3); Triple Phosphate Crystal 4+ HPF (None Seen)
[2023-03-11 08:59] LABS: Urine Culture Reflex Yes Yes
[2023-03-11] MEDS ORDERED: HYDROcodone/Acetaminophen 5/325 mg Tablet ONE (09:03)
[2023-03-11 09:08] LABS: SARS-CoV-2 NAA Rapid Test Not Detected (NotDetected)
[2023-03-11] MEDS ORDERED: Iopamidol 300 61% 100 ML VIAL FS ONE (09:58)
== END 2023-03-11 11:43 | disposition home or self-care (01) ==
LOC: CSHERS 06:40
DX: J18.9 Pneumonia, unspecified organism (principal); N39.0 Urinary tract infection, site not specified; I10 Essential (primary) hypertension; Z20.822 Contact with and (suspected) exposure to COVID-19
CPT/HCPCS: 0240U; 71045; 74177; 80053; 81001; 83605; 85025; 87040; 87077; 87086; 87186; 99284; 36415; Q9967

== ENCOUNTER 2023-03-19 08:24 | Outpatient (CLI) | payer MEDICARE | END 2023-03-19 08:25 | disposition home or self-care (01) | LOC: CSHWCC 08:24 | PROVIDERS: ATTEND Physician Assistant | DX: L89.153 Pressure ulcer of sacral region, stage 3 (principal) | CPT/HCPCS: 97597 ==

== ENCOUNTER 2023-04-16 08:10 | Outpatient (CLI) | payer MEDICARE | END 2023-04-16 08:11 | disposition home or self-care (01) | LOC: CSHWCC 08:10 | PROVIDERS: ATTEND Preventive Medicine Undersea and Hyperbaric Medicine | DX: L89.153 Pressure ulcer of sacral region, stage 3 (principal) | CPT/HCPCS: 99213; G0463 ==